=== PATIENT | male | born 1955 | race Caucasian/White ===

== ENCOUNTER → 2017-01-10 | Outpatient (CLI) | payer OTHER ==
[~2017-01-10] MED LIST: DPTSTI200 IM; HYD10 PO; HYDR20TA PO; HYDROCORTISONE PO; LISI-791 PO; MCRK20 PO; SYN100 PO; TUMS PO
[2017-01-10 12:13] LABS: BASO % 0.3 %; BASO ABS # 0.02 K/uL (0-0.2); COMPLETE YES; EOS % 1.6 %; HEMATOCRIT 48.7 % (42-52); IG% 0.3 %; LYMPH % 40.9 %; LYMPH ABS # 3.14 K/uL (1.2-3.4); MEAN CORPUSCULAR HEMOGLOBIN 29.3 pg (25-34); MEAN CORPUSCULAR HGB CONC 32.2 g/dl (32-36); MEAN PLATELET VOLUME 10.3 fL (7.4-10.4); MONO % 9.6 %; NEUT % 47.3 %; PLATELET COUNT 161 K/uL (130-400); RED BLOOD COUNT 5.35 M/uL (4.7-6.1); WHITE BLOOD COUNT 7.67 K/uL (4.8-10.8)
[2017-01-10 12:24] LABS: ALT/SGPT 32 U/L (12-78); BLOOD UREA NITROGEN 20 mg/dl (7-18); BUN/CREATININE RATIO 12.6 (10-20); CALCIUM 9.4 mg/dl (8.5-10.1); CARBON DIOXIDE 30 mmol/L (21-32); CHLORIDE 105 mmol/L (98-107); CHOLESTEROL 178 mg/dl (0-200); GLUCOSE 83 mg/dl (70-99); POTASSIUM 4.2 mmol/L (3.5-5.1); SODIUM 140 mmol/L (136-145); TRIGLYCERIDES 286 mg/dl (0-150); VERY LOW DENSITY LIPOPROT CALC 57 mg/dl
[2017-01-10 12:33] LABS: ALB/GLOB RATIO 1.2 (0.9-2); ALKALINE PHOSPHATASE 47 U/L (45-117); AST/SGOT 17 U/L (15-37); CHOLESTEROL/HDL RATIO 6.4; HDL CHOLESTEROL 28 mg/dl; LDL CHOLESTEROL CALCULATED 93 mg/dl; THYROID STIMULATING HORMONE 0.344 uIu/ml (0.300-4.500)
== END | disposition home or self-care (01) ==
LOC: C.LABBFT 07:50
PROVIDERS: ATTEND Internal Medicine
DX: Z00.00 Encounter for general adult medical examination without abnormal findings (principal); I10 Essential (primary) hypertension; E78.5 Hyperlipidemia, unspecified; E03.9 Hypothyroidism, unspecified; E87.6 Hypokalemia; Z12.5 Encounter for screening for malignant neoplasm of prostate

== ENCOUNTER → 2018-01-10 | Outpatient (CLI) | payer BC ==
[2018-01-10 12:26] LABS: BASO % 0.2 %; BASO ABS # 0.02 K/uL (0-0.2); EOS % 1.3 %; EOS ABS # 0.11 K/uL (0-0.5); HEMATOCRIT 47.8 % (42-52); HEMOGLOBIN 16.1 g/dL (14.0-18.0); IG# 0.03 K/uL (0.00-0.02); LYMPH ABS # 3.51 K/uL (1.2-3.4); MEAN CELL VOLUME 90.4 fL (80-100); MEAN CORPUSCULAR HEMOGLOBIN 30.4 pg (25-34); MEAN CORPUSCULAR HGB CONC 33.7 g/dl (32-36); MEAN PLATELET VOLUME 10.5 fL (7.4-10.4); MONO ABS # 0.67 K/uL (0.11-0.59); NEUT % 48.1 %; NEUT ABS # 4.01 K/uL (1.4-6.5); PLATELET COUNT 160 K/uL (130-400); RED CELL DISTRIBUTION WIDTH CV 14.3 % (11.5-14.5); RED CELL DISTRIBUTION WIDTH SD 46.6 fL (36.4-46.3); WHITE BLOOD COUNT 8.35 K/uL (4.8-10.8)
[2018-01-10 12:44] LABS: ALBUMIN 3.8 gm/dl (3.4-5.0); ALKALINE PHOSPHATASE 49 U/L (45-117); ALT/SGPT 28 U/L (12-78); AST/SGOT 18 U/L (15-37); BLOOD UREA NITROGEN 23 mg/dl (7-18); CALCIUM 8.6 mg/dl (8.5-10.1); CARBON DIOXIDE 28 mmol/L (21-32); CHOLESTEROL 152 mg/dl (0-200); CREATININE 1.57 mg/dl (0.60-1.40); GLUCOSE 79 mg/dl (70-99); LDL CHOLESTEROL CALCULATED 67 mg/dl; SODIUM 137 mmol/L (136-145); TOTAL PROTEIN 7.5 gm/dl (6.4-8.2)
== END | disposition home or self-care (01) ==
LOC: C.LABBFT 07:36
PROVIDERS: ATTEND Internal Medicine
DX: I10 Essential (primary) hypertension (principal); E78.5 Hyperlipidemia, unspecified; E03.9 Hypothyroidism, unspecified

== ENCOUNTER 2020-01-05 12:00 | Inpatient (IN) ==
[2020-01-05 12:43] LABS: Basophils # (auto) 0.01 K/uL (0-0.2); Basophils % (auto) 0.2 %; Hematocrit (blood only) 44.1 % (42-52); Immature Granulocytes # (auto) 0.01 K/uL (0.00-0.02); Immature Granulocytes % (auto) 0.2 %; Lymphocytes # (auto) 1.74 K/uL (1.2-3.4); Lymphocytes % (auto) 37.9 %; Mean Corpuscular Hemoglobin 30.9 pg (25-34); Mean Corpuscular Volume 90.7 fL (80-100); Mean Platelet Volume 9.9 fL (7.4-10.4); Monocytes # (auto) 0.27 K/uL (0.11-0.59); Monocytes % (auto) 5.9 %; Neutrophils # (auto) 2.56 K/uL (1.4-6.5); Neutrophils % (auto) 55.8 %; Platelet Count 110 K/uL (130-400); RDW Coefficient of Variation 13.8 % (11.5-14.5); RDW Standard Deviation 45.7 fL (36.4-46.3); Red Blood Count 4.86 M/uL (4.7-6.1); White Blood Count 4.59 K/uL (4.8-10.8)
[2020-01-05] MEDS ORDERED: SODIUM CHLORIDE 0.9% 1000ML 1,000 ML IV SCH (12:45)
[2020-01-05 12:53] LABS: Albumin Level 3.7 gm/dl (3.4-5.0); BUN Creatinine Ratio 11.1 (10-20); Calcium 8.3 mg/dl (8.5-10.1); Est GFR (African American) 55.7; Est GFR (Non-African American) 48.1; Potassium 3.7 mmol/L (3.5-5.1)
[2020-01-05 12:56] LABS: Albumin Globulin Ratio 0.9 (0.9-2); Bilirubin,Total 0.7 mg/dl (0.2-1); Globulin 4.1 gm/dl (2.5-4.0); Total Protein 7.8 gm/dl (6.4-8.2)
[2020-01-05] MEDS ORDERED: ACETAMINOPHEN 1,000 MG/100 ML VIAL IV STA (13:12)
[2020-01-05] MEDS ORDERED: ONDANSETRON INJ 2 MG/ML 2 ML VIAL IV STA (13:12)
--- NOTE | 2020-01-05 13:13 | Emergency Department Note ---
History of Present Illness General Chief complaint: Illness Stated complaint: POSITIVE FOR COVID Time Seen by Provider: 01/05/20 12:48 History of Present Illness Maximum Pain Intensity: 9 This is a 64-year-old male that presents to the emergency department via private vehicle with complaints of "positive for COVID". The patient states that this past Tuesday he became ill and lost sense of taste and had a headache. He states that he has a history of pituitary tumor with subsequent resection and now takes daily hydrocortisone. He states that secondary to his illness he has not been able to take hydrocortisone yesterday or today. He states that his symptoms will come in waves. He notes he is persistently feeling worse. He notes decreased p.o. intake as well. He notes associated fever, backache, headache and nausea. No cough or shortness of breath. No chest pain. He denies any significant travel. Home Medications Home Medications Medication Instructions Recorded Confirmed Type calcium carbonate 200 mg calcium 200 mg PO DAILY PRN tab 02/09/19 01/05/20 History (500 mg) chewable tablet hydrocodone-homatropine 5 mg-1.5 5 ml PO HS PRN #240 ml 02/09/19 01/05/20 History mg/5 mL oral syrup hydrocortisone 10 mg tablet See Rx Instructions PO QPM #90 tab 06/18/19 01/05/20 Rx hydrocortisone 20 mg tablet 20 mg PO QAM #90 tab 07/31/19 01/05/20 Rx testosterone 20.25 mg/1.25 gram 4 pump TOP DAILY #150 gm 11/09/19 01/05/20 Rx (1.62 %) transdermal gel pump levothyroxine 100 mcg PO QAM 01/05/20 01/05/20 History losartan 25 mg PO QAM 01/05/20 01/05/20 History potassium chloride 20 meq PO QAM 01/05/20 01/05/20 History Allergies Allergy/AdvReac Type Severity Reaction Status Date / Time CIGARETTE SMOKE Allergy Intermediate RESPITORY Uncoded 01/05/20 15:01 SYMTOMS RABBITS Allergy Unknown HARD TIME Uncoded 01/05/20 15:01 BREATHING,CLOGS HEAD Past Med/Surg History Medical History Adrenal insufficiency (Inactive) Surgical History History of surgical removal of pituitary gland Social History Smoking Status: Never smoker Feels Safe at Home: Yes Review of Systems A total of 10 systems reviewed and were otherwise negative Physical Exam Vital Signs Vital Signs - 24 hr 01/05/20 12:10 01/05/20 13:20 Temperature 37.7 C H 37.0 C Temperature Source Oral Oral Pulse Rate 70 Pulse Rate [Left Finger] 67 Respiratory Rate 20 20 Blood Pressure 145/81 H Blood Pressure [Left Arm] 145/94 H Blood Pressure Mean 102 Blood Pressure Mean [Left Arm] 111 Blood Pressure Position Lying Pulse Oximetry 96 97 Sepsis Recent Fever Within 48 Hours Yes Sepsis New/Unexplained Change in Mental Status No Sepsis Action Taken by Nursing No Action Required VITAL SIGNS - Vital signs and nursing notes were reviewed. Borderline febrile, otherwise stable. GENERAL - 64-year-old male appearing his stated age who is in no acute distress. Communicates well with provider and answers questions appropriately. SKIN - Without rashes. No meningeal or petechial rash. HEAD - NC/AT. EYES - PERRL with EOMI bilaterally. Sclera anicteric. EARS - No deformities of external structures noted on gross examination bilaterally. NOSE - Midline and without cyanosis. No epistaxis or purulent drainage noted. MOUTH/OROPHARYNX - Without perioral cyanosis. NECK - Neck with FROM. Supple to palpation. No lymphadenopathy noted. No nuchal rigidity. LUNGS - Chest wall symmetric without accessory muscle use, intercostals retractions, or central cyanosis. Normal vesicular breath sounds CTA B/L. No wheezes, rales, or rhonchi appreciated. CARDIAC - RRR with S1/S2. No murmur, rubs, or gallops appreciated. ABDOMEN - Abdominal contour normal without pulsations or visible masses. BS normoactive all four quadrants. No tenderness, palpable masses, hepatosplenomegaly, or ascites noted. EXTREMITIES - +5/5 strength noted in UE/LE bilaterally. NEUROLOGIC - Cranial nerves II through XII grossly intact. PSYCH - A&O, and cooperates fully with examiner. Pt is very pleasant and interacts well with examiner. Course Administered Medications Discontinued Medications Hydrocortisone (Cortef) 20 mg PO NOW STA Stop: 01/05/20 14:36 Last Admin: 01/05/20 15:02 Dose: 20 mg Documented by: [id number] Hydrocortisone Sodium Succinate (Solu-Cortef) 20 mg IV NOW STA Stop: 01/05/20 14:43 Last Admin: 01/05/20 14:54 Dose: 20 mg Documented by: [id number] Sodium Chloride (Nss 1000ml) 1,000 mls @ 999 mls/hr IV .Q1H1M PRISCILLA Stop: 01/05/20 13:45 Last Infusion: 01/05/20 14:02 Dose: 0 mls/hr Documented by: [id number] Admin: 01/05/20 12:36 Dose: 999 mls/hr Documented by: [id number] Acetaminophen (Ofirmev) 1,000 mg in 100 mls @ 400 mls/hr IV NOW STA Stop: 01/05/20 13:26 Last Infusion: 01/05/20 14:02 Dose: 0 mls/hr Documented by: [id number] Admin: 01/05/20 13:18 Dose: 400 mls/hr Documented by: [id number] Piperacillin Sod/Tazobactam Sod (Zosyn) 4.5 gm in 120 mls @ 240 mls/hr IV NOW ONE Stop: 01/05/20 15:16 Last Infusion: 01/05/20 16:25 Dose: 0 mls/hr Documented by: [id number] Admin: 01/05/20 15:04 Dose: 240 mls/hr Documented by: [id number] Ioversol (Optiray 320 125ml) 120 ml IV ONCE ONE Stop: 01/05/20 16:24 Last Admin: 01/05/20 16:24 Dose: 120 ml Documented by: [id number] Ondansetron HCl (Zofran) 4 mg IV NOW STA Stop: 01/05/20 13:13 Last Admin: 01/05/20 13:18 Dose: 4 mg Documented by: [id number] Medical Decision Making Laboratory Data Result diagrams: 01/05/20 12:23 01/05/20 12:23 Lab Results 01/05/20 01/05/20 01/05/20 Range/Units 12:23 12:23 12:23 WBC 4.59 L (4.8-10.8) K/uL RBC 4.86 (4.7-6.1) M/uL Hgb 15.0 (14.0-18.0) g/dL Hct 44.1 (42-52) % MCV 90.7 (80-100) fL MCH 30.9 (25-34) pg MCHC 34.0 (32-36) g/dL RDW Std Deviation 45.7 (36.4-46.3) fL RDW Coeff of Joshua 13.8 (11.5-14.5) % Plt Count 110 L (130-400) K/uL MPV 9.9 (7.4-10.4) fL Immature Gran % (Auto) 0.2 % Neut % (Auto) 55.8 % Lymph % (Auto) 37.9 % [place] % (Auto) 5.9 % Eos % (Auto) 0.0 % Baso % (Auto) 0.2 % Neut # (Auto) 2.56 (1.4-6.5) K/uL Lymph # (Auto) 1.74 (1.2-3.4) K/uL [place] # (Auto) 0.27 (0.11-0.59) K/uL Eos # (Auto) 0.00 (0-0.5) K/uL Baso # (Auto) 0.01 (0-0.2) K/uL Immature Gran # (Auto) 0.01 (0.00-0.02) K/uL D-Dimer (0-500) ug/L FEU Sodium 135 L (136-145) mmol/L Potassium 3.7 (3.5-5.1) mmol/L Chloride 102 (98-107) mmol/L Carbon Dioxide 30 (21-32) mmol/L Anion Gap 3.0 (3-11) BUN 17 (7-18) mg/dl Creatinine 1.52 H (0.6-1.4) mg/dl Est Cr Clr Drug Dosing 67.0 ml/min Est GFR ( Amer) 55.7 Est GFR (Non-Af Amer) 48.1 BUN/Creatinine Ratio 11.1 (10-20) Glucose 83 (70-99) mg/dl Lactate (0.4-2.0) mmol/L Calcium 8.3 L (8.5-10.1) mg/dl Total Bilirubin 0.7 (0.2-1) mg/dl AST 56 H (15-37) U/L ALT 73 (12-78) U/L Alkaline Phosphatase 62 (45-117) U/L Troponin I (0-0.045) ng/ml Total Protein 7.8 (6.4-8.2) gm/dl Albumin 3.7 (3.4-5.0) gm/dl Globulin 4.1 H (2.5-4.0) gm/dl Albumin/Globulin Ratio 0.9 (0.9-2) Procalcitonin < 0.05 (0-0.5) ng/ml 01/05/20 01/05/20 01/05/20 Range/Units 12:23 12:23 15:04 WBC (4.8-10.8) K/uL RBC (4.7-6.1) M/uL Hgb (14.0-18.0) g/dL Hct (42-52) % MCV (80-100) fL MCH (25-34) pg MCHC (32-36) g/dL RDW Std Deviation (36.4-46.3) fL RDW Coeff of Joshua (11.5-14.5) % Plt Count (130-400) K/uL MPV (7.4-10.4) fL Immature Gran % (Auto) % Neut % (Auto) % Lymph % (Auto) % [place] % (Auto) % Eos % (Auto) % Baso % (Auto) % Neut # (Auto) (1.4-6.5) K/uL Lymph # (Auto) (1.2-3.4) K/uL [place] # (Auto) (0.11-0.59) K/uL Eos # (Auto) (0-0.5) K/uL Baso # (Auto) (0-0.2) K/uL Immature Gran # (Auto) (0.00-0.02) K/uL D-Dimer 540 H* (0-500) ug/L FEU Sodium (136-145) mmol/L Potassium (3.5-5.1) mmol/L Chloride (98-107) mmol/L Carbon Dioxide (21-32) mmol/L Anion Gap (3-11) BUN (7-18) mg/dl Creatinine (0.6-1.4) mg/dl Est Cr Clr Drug Dosing ml/min Est GFR ( Amer) Est GFR (Non-Af Amer) BUN/Creatinine Ratio (10-20) Glucose (70-99) mg/dl Lactate 0.9 (0.4-2.0) mmol/L Calcium (8.5-10.1) mg/dl Total Bilirubin (0.2-1) mg/dl AST (15-37) U/L ALT (12-78) U/L Alkaline Phosphatase (45-117) U/L Troponin I < 0.015 (0-0.045) ng/ml Total Protein (6.4-8.2) gm/dl Albumin (3.4-5.0) gm/dl Globulin (2.5-4.0) gm/dl Albumin/Globulin Ratio (0.9-2) Procalcitonin (0-0.5) ng/ml Imaging Data Radiologist's Impression: XR chest 1V portable CLINICAL HISTORY: fever, COVID + fever COMPARISON STUDY: 02/27/2015 FINDINGS: Developing parenchymal infiltrate left base. Platelike atelectasis right base. Upper lungs are clear. IMPRESSION: Developing parenchymal infiltrate left base. ACT 112: Negative or not required by law. The above report was generated using voice recognition software. It may contain grammatical, syntax or spelling errors. Electronically signed by: Timo Olsen M.D. 01/05/2020 2:[address] angio chest PE protocol CT DOSE: 528.54 mGycm HISTORY: Pain COVID+, back pain TECHNIQUE: Multiaxial CT images of the chest were performed following the intravenous administration of contrast to evaluate the pulmonary arteries. Maxim al intensity projection images were also obtained. A dose lowering technique was utilized adhering to the principles of ALARA. COMPARISON STUDY: None. FINDINGS: Pulmonary vasculature enhances appropriately. No significant filling defects. Bibasilar parenchymal infiltrative change. Patchy groundglass densities in the upper left and to a lesser extent upper right lobes as well. IMPRESSION: 1. No evidence for pulmonary embolus. 2. Diffuse bibasilar parenchymal infiltrates with less prominent groundglass infiltrative changes of the upper lung regions bilaterally. ACT 112: Negative or not required by law. The above report was generated using voice recognition software. It may contain grammatical, syntax or spelling errors. Electronically signed by: Timo Olsen M.D. 01/05/2020 4:42 PM [facility] Narrative Patient was seen and evaluated as above in room B08. Review was performed of nursing notes and vital signs. I did review pertinent previous visits and patient history. After obtaining a thorough history and physical examination the above work up was performed. He presents to us today with a positive COVID test now with worsening symptoms. The patient is nontoxic on examination but does appear to be quite tired. He is borderline febrile. Chest x-ray was obtained and is as above. IV fluids were initiated as well as replenishing the patient's hydrocortisone via both p.o. and IV modalities. He was given Zofran for nausea. He was also given a gram of IV Tylenol. He was reevaluated with some improvement. Given the chest x-ray findings although this is likely viral given his history it was felt empiric IV antibiotics would be reasonable and Zosyn was ordered. Blood cultures pending. Lactic acid and pro calcitonin reassuringly are normal. Patient did have elevated d-dimer and a CTA was obtained and this further shows the diffuse by basilar parenchymal infiltrates. Given the patient's past medical history and missing several doses of hydrocortisone secondary to symptoms I believe that further evaluation and management the inpatient setting would be warranted. I did discuss case with the hospitalist. Please refer to further documentation regarding his stay. Case was discussed with the attending physician. I attest that I have personally reviewed the patient medication list. GCS: 15 In the evaluation and treatment of this patient, the following differential diagnoses were considered: TN, ASC, Dysrhythmia, Angina, Mediastinitis, GERD, Esophagitis, PE, Pneumonia, Bronchitis, Costochondritis, Rib Fracture, Zoster, COVID-19 complications, among others. Impression & Plan COVID-19, Pulmonary infiltrates, Nausea, Adrenal insufficiency Discharge Plan Visit Data Chief Complaint: Illness Stated Complaint: POSITIVE FOR COVID ED Provider: Dennis Leon ED Midlevel Provider: Hussain Hernandez Discharge Problem: COVID-19, Pulmonary infiltrates, Nausea, Adrenal insufficiency Discharge Instructions Interventions: ED Discharge Assessment Last Done: 01/05/20 18:37
[2020-01-05] MEDS ORDERED: HYDROCORTISONE 10 MG TAB PO STA ×2 (14:30→14:35)
[2020-01-05] MEDS ORDERED: HYDROCORTISONE SOD SUCCINATE 100 MG/2 ML VIAL IV STA (14:42)
--- NOTE | 2020-01-05 14:42 | XRay Report ---
XR chest 1V portable CLINICAL HISTORY: fever, COVID + fever COMPARISON STUDY: 02/27/2015 FINDINGS: Developing parenchymal infiltrate left base. Platelike atelectasis right base. Upper lungs are clear. IMPRESSION: Developing parenchymal infiltrate left base. ACT 112: Negative or not required by law. The above report was generated using voice recognition software. It may contain grammatical, syntax or spelling errors. Electronically signed by: Timo Olsen M.D. 01/05/2020 2:41 PM
[2020-01-05] MEDS ORDERED: PIPERACILL/TAZOBAC CONSULT ACTIVE PRN (14:47)
[2020-01-05] MEDS ORDERED: PIPERACILLIN/TAZOBACTAM 4.5 GM/120 ML BAG IV ONE (14:47)
[2020-01-05 15:25] LABS: D Dimer 540 ug/L FEU (0-500)
[2020-01-05] MEDS ORDERED: OPTIRAY 320 125ml IV ONE (16:23)
--- NOTE | 2020-01-05 16:44 | CT Scan Report ---
CT angio chest PE protocol CT DOSE: 528.54 mGycm HISTORY: Pain COVID+, back pain TECHNIQUE: Multiaxial CT images of the chest were performed following the intravenous administration of contrast to evaluate the pulmonary arteries. Maximal intensity projection images were also obtaine d. A dose lowering technique was utilized adhering to the principles of ALARA. COMPARISON STUDY: None. FINDINGS: Pulmonary vasculature enhances appropriately. No significant filling defects. Bibasilar parenchymal infiltrative change. Patchy groundglass densities in the upper left and to a le sser extent upper right lobes as well. IMPRESSION: 1. No evidence for pulmonary embolus. 2. Diffuse bibasilar parenchymal infiltrates with less prominent groundglass infiltrative changes of the upper lung regions bilaterally. ACT 112: Negative or not required by law. The above report was generated using voice recognition software. It may contain grammatical, syntax or spelling errors. Electronically signed by: Timo Olsen M.D. 01/05/2020 4:42 PM
[2020-01-05] MEDS ORDERED: ENOXAPARIN 0.5 MG/KG SQ SCH (17:31)
--- NOTE | 2020-01-05 17:32 | History & Physical Report ---
Date of Service January 05, 2020 Assessment & Plan (1) Nausea: Secondary to COVID-19 -Admit to medical/surgical floor -Treat with IV fluids for hydration -IV Zofran as needed for nausea -Clear liquids diet for now and advance as tolerated (2) COVID-19: Diagnosed with COVID-19 earlier this week, with protracted nausea and inability to take his usual p.o. hydrocortisone at home for adrenal insufficiency With diffuse bibasilar parenchymal infiltrates and bilateral upper lobe groundglass opacities on CT chest, but fortunately is not currently hypoxic or symptomatic with this -Not a candidate for treatment with dexamethasone or antivirals or convalescent plasma at this time as he does not have moderate-severe disease -Continue supportive care, hydration, antiemetics, and acetaminophen as needed for headaches and fever -Consider adding on antiviral and dexamethasone if becomes hypoxic less than 94% on room air -With leukopenia, mild thrombocytopenia, mild elevation in AST, elevated d-dimer all consistent with COVID infection -Follow CBC, CMP, d-dimer, ferritin, LDH, CRP in the morning (3) 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 medications due to nausea and with acute illness with COVID-19 as above Continue p.o. levothyroxine if tolerating p.o. tomorrow-otherwise, can convert to IV We will give stress dose steroid with IV hydrocortisone 50 mg IV every 8 hours while acutely ill -Once improved and taking p.o., can taper back down to home p.o. hydrocortisone of 20 mg in the morning and 10 mg at noon -Can continue testosterone gel topically if brings in from home-okay if does not receive this for a few days (4) Pulmonary infiltrates: Secondary to COVID-19 As above, not hypoxic currently No indication for antibiotics at this time, procalcitonin is negative (5) HTN (hypertension), benign: Blood pressures are mildly elevated on admission Giving stress dose steroids as above -Continue home losartan (6) CKD (chronic kidney disease) stage 3, GFR 30-59 ml/min: Creatinine baseline around 1.2-1.3, currently with mild renal insufficiency with creatinine of 1.5 likely secondary to poor p.o. intake and dehydration -Giving IV fluid hydration --Avoid nephrotoxins -renally dose meds when appropriate -follow BMP (7) Hyponatremia: Sodium 135 on arrival, likely secondary to dehydration and has not been able to take his p.o. hydrocortisone -Starting IV hydrocortisone and IV fluids as above -Follow BMP in the morning (8) Obesity (BMI 30-39.9): BMI 36.3 Has been working on weight loss as an outpatient-lost 50 pounds last year and gained some of it back here (9) DVT prophylaxis: High risk for VTE with COVID infection in the setting of little ambulation and isolation in the hospital Start Lovenox 60 mg SQ once daily which is the recommended dose for COVID patients of 0.5 mgs per kg every 24 hours Disposition-admit to medical/surgical floor Full code History of Present Illness Chief Complaint: Nausea, COVID-19 Primary Care Provider: Irwin Martell MD This patient is a 64-year-old male with a history of panhypopituitarism status post pituitary apoplexy in 2000, HTN, CKD stage III, and obesity who presents to the ER with significant nausea and inability to take oral medications at home after being diagnosed with COVID-19 earlier this week. He reports 6 days ago he began to have a mild headache, a loss of sense of taste, along with chills, body aches, and significant nausea without vomiting. He denies abdominal pains or diarrhea. He denies shortness of breath or cough. He was tested for COVID on Tuesday and received the positive result on Tuesday of this week. He has been staying at home isolated. He thinks that he picked it up from a friend of his at his [employer]. He was not able to take his p.o. hydrocortisone or any of his medications yesterday or today due to profound nausea. Given his history of panhypopituitarism, he was concerned and called his PCP who advised him to come to the ER. In the ER, he was noted to have a mild renal insufficiency with a creatinine of 1.52, mild hyponatremia with sodium 135, AST mildly elevated at 56, and with mild leukopenia and thrombocytopenia. His d-dimer was slightly elevated at 540, troponin was negative. Because he was also complaining of some constant upper back pain, a CT angiogram of the chest was performed to rule out PE which was negative for PE, however showed diffuse bibasilar parenchymal infiltrates and less prominent patchy groundglass densities in the bilateral upper lobes. Fortunately, his pulse ox was normal at 95-97% on room air and he had no chest pain. His blood pressure was actually mildly elevated and he had a low-grade temperature of 37.7 C. He was given a dose of IV hydrocortisone in the ER as well as IV acetaminophen and IV Zosyn for nausea. He was also given IV Zosyn x1 dose for suspected bacterial pneumonia seen on chest x-ray, however his procalcitonin was negative. He will be admitted for intractable nausea and inability to take vital steroid replacement therapy in the setting of acute illness with COVID-19. Allergies Allergy/AdvReac Type Severity Reaction Status Date / Time cigarette smoke Allergy Unknown Respiratory Verified 01/05/20 20:08 symptoms Rabbit Allergy Unknown Hard time Verified 01/05/20 20:10 breathing, clogs head Home Medications Home Medications Medication Instructions Recorded Confirmed Type calcium carbonate 200 mg calcium 200 mg PO DAILY PRN tab 02/09/19 01/05/20 History (500 mg) chewable tablet hydrocodone-homatropine 5 mg-1.5 5 ml PO HS PRN #240 ml 02/09/19 01/05/20 History mg/5 mL oral syrup hydrocortisone 10 mg tablet See Rx Instructions PO QPM #90 tab 06/18/19 01/05/20 Rx hydrocortisone 20 mg tablet 20 mg PO QAM #90 tab 07/31/19 01/05/20 Rx testosterone 20.25 mg/1.25 gram 4 pump TOP DAILY #150 gm 11/09/19 01/05/20 Rx (1.62 %) transdermal gel pump levothyroxine 100 mcg PO QAM 01/05/20 01/05/20 History losartan 25 mg PO QAM 01/05/20 01/05/20 History potassium chloride 20 meq PO QAM 01/05/20 01/05/20 History Past Med/Surg History Medical History Adrenal insufficiency (Inactive) CKD (chronic kidney disease) stage 3, GFR 30-59 ml/min HTN (hypertension), benign Obesity (BMI 30-39.9) Panhypopituitarism Vasovagal episode (Resolved) Surgical History History of surgical removal of pituitary gland Family History (Updated 01/05/20 @ 21:43 by Elizabeth Mistry MD) Father Heart disease Mother No problems noted. Social History Smoking Status: Never smoker Hx Alcohol Use: No Hx Substance Use: No Current Living Situation: Spouse current occupational status: employed current occupation: Self-employed, sells things on [employer] Feels Safe at Home: Yes Review of Systems Review of Systems: All systems reviewed & are unremarkable except as noted in HPI & below Physical Exam Constitutional: WD/WN, vitals as above Eyes: PERRL, conjunctivae normal, anicteric sclerae ENMT: external ear and nose normal, oropharynx normal Neck: trachea midline, no thyromegaly Respiratory: normal respiratory effort; no labored breathing Auscultation: + crackles (Bibasilar); no rhonchi and no wheezes Cardiovascular: RRR, no murmur, no edema Chest (Breasts): Chest: normal inspection of chest Gastrointestinal (Abdomen): normal bowel sounds, soft, nontender, no hepatosplenomegaly Musculoskeletal: Extremities: extremities normal to inspection; no cyanosis and no clubbing Skin: no rashes, warm and dry Neurologic: moves all extremities and awake; no focal motor deficits Psychiatric: A+Ox3, euthymic affect Lymphatic: no lymphedema Results & Data Results & Data ([facility]) Vital Signs (Past 12 Hours) Vital Signs Temp Pulse Pulse Resp BP BP Pulse Ox 01/05/20 13:20 37.0 C 67 20 145/94 H 97 01/05/20 12:10 37.7 C H 70 20 145/81 H 96 Laboratory Results 01/05/20 01/05/20 01/05/20 Range/Units 15:04 12:23 12:23 WBC (4.8-10.8) K/uL RBC (4.7-6.1) M/uL Hgb (14.0-18.0) g/dL Hct (42-52) % MCV (80-100) fL MCH (25-34) pg MCHC (32-36) g/dL RDW Std Deviation (36.4-46.3) fL RDW Coeff of Joshua (11.5-14.5) % Plt Count (130-400) K/uL MPV (7.4-10.4) fL Immature Gran % (Auto) % Neut % (Auto) % Lymph % (Auto) % [place] % (Auto) % Eos % (Auto) % Baso % (Auto) % Neut # (Auto) (1.4-6.5) K/uL Lymph # (Auto) (1.2-3.4) K/uL [place] # (Auto) (0.11-0.59) K/uL Eos # (Auto) (0-0.5) K/uL Baso # (Auto) (0-0.2) K/uL Immature Gran # (Auto) (0.00-0.02) K/uL D-Dimer 540 H* (0-500) ug/L FEU Sodium (136-145) mmol/L Potassium (3.5-5.1) mmol/L Chloride (98-107) mmol/L Carbon Dioxide (21-32) mmol/L Anion Gap (3-11) BUN (7-18) mg/dl Creatinine (0.6-1.4) mg/dl Est Cr Clr Drug Dosing ml/min Est GFR ( Amer) Est GFR (Non-Af Amer) BUN/Creatinine Ratio (10-20) Glucose (70-99) mg/dl Lactate 0.9 (0.4-2.0) mmol/L Calcium (8.5-10.1) mg/dl Total Bilirubin (0.2-1) mg/dl AST (15-37) U/L ALT (12-78) U/L Alkaline Phosphatase (45-117) U/L Troponin I < 0.015 (0-0.045) ng/ml Total Protein (6.4-8.2) gm/dl Albumin (3.4-5.0) gm/dl Globulin (2.5-4.0) gm/dl Albumin/Globulin Ratio (0.9-2) Procalcitonin (0-0.5) ng/ml 01/05/20 01/05/20 01/05/20 Range/Units 12:23 12:23 12:23 WBC 4.59 L (4.8-10.8) K/uL RBC 4.86 (4.7-6.1) M/uL Hgb 15.0 (14.0-18.0) g/dL Hct 44.1 (42-52) % MCV 90.7 (80-100) fL MCH 30.9 (25-34) pg MCHC 34.0 (32-36) g/dL RDW Std Deviation 45.7 (36.4-46.3) fL RDW Coeff of Joshua 13.8 (11.5-14.5) % Plt Count 110 L (130-400) K/uL MPV 9.9 (7.4-10.4) fL Immature Gran % (Auto) 0.2 % Neut % (Auto) 55.8 % Lymph % (Auto) 37.9 % Sanders % (Auto) 5.9 % Eos % (Auto) 0.0 % Baso % (Auto) 0.2 % Neut # (Auto) 2.56 (1.4-6.5) K/uL Lymph # (Auto) 1.74 (1.2-3.4) K/uL Sanders # (Auto) 0.27 (0.11-0.59) K/uL Eos # (Auto) 0.00 (0-0.5) K/uL Baso # (Auto) 0.01 (0-0.2) K/uL Immature Gran # (Auto) 0.01 (0.00-0.02) K/uL D-Dimer (0-500) ug/L FEU Sodium 135 L (136-145) mmol/L Potassium 3.7 (3.5-5.1) mmol/L Chloride 102 (98-107) mmol/L Carbon Dioxide 30 (21-32) mmol/L Anion Gap 3.0 (3-11) BUN 17 (7-18) mg/dl Creatinine 1.52 H (0.6-1.4) mg/dl Est Cr Clr Drug Dosing 67.0 ml/min Est GFR ( Amer) 55.7 Est GFR (Non-Af Amer) 48.1 BUN/Creatinine Ratio 11.1 (10-20) Glucose 83 (70-99) mg/dl Lactate (0.4-2.0) mmol/L Calcium 8.3 L (8.5-10.1) mg/dl Total Bilirubin 0.7 (0.2-1) mg/dl AST 56 H (15-37) U/L ALT 73 (12-78) U/L Alkaline Phosphatase 62 (45-117) U/L Troponin I (0-0.045) ng/ml Total Protein 7.8 (6.4-8.2) gm/dl Albumin 3.7 (3.4-5.0) gm/dl Globulin 4.1 H (2.5-4.0) gm/dl Albumin/Globulin Ratio 0.9 (0.9-2) Procalcitonin < 0.05 (0-0.5) ng/ml Diagnostic Findings CT angio chest PE protocol CT DOSE: 528.54 mGycm HISTORY: Pain COVID+, back pain TECHNIQUE: Multiaxial CT images of the chest were performed following the intravenous administration of contrast to evaluate the pulmonary arteries. Maximal intensity projection images were also obtained. A dose lowering technique was utilized adhering to the principles of ALARA. COMPARISON STUDY: None. FINDINGS: Pulmonary vasculature enhances appropriately. No significant filling defects. Bibasilar parenchymal infiltrative change. Patchy groundglass densities in the upper left and to a lesser extent upper right lobes as well. IMPRESSION: 1. No evidence for pulmonary embolus. 2. Diffuse bibasilar parenchymal infiltrates with less prominent groundglass infiltrative changes of the upper lung regions bilaterally. XR chest 1V portable CLINICAL HISTORY: fever, COVID + fever COMPARISON STUDY: 02/27/2015 FINDINGS: Developing parenchymal infiltrate left base. Platelike atelectasis right base. Upper lungs are clear. IMPRESSION: Developing parenchymal infiltrate left base. Code Status & VTE Plan Code Status Full code VTE Prophylaxis Plan VTE Prophylaxis will be ordered: Yes PG Care Time/CCT Total # of Minutes Spent Total Time Spent with Patient: Total time spent is greater than 50% in coordination of care (as documented) at patient's floor/unit and/or counseling patient: Coding Level of Care Code 24423 Initial Inpt Care Lvl 3 Diagnoses Nausea R11.0 COVID-19 U07.1 Panhypopituitarism E23.0 Pulmonary infiltrates R91.8 HTN (hypertension), benign I10 CKD (chronic kidney disease) stage 3, GFR 30-59 ml/min N18.3 Hyponatremia E87.1 Obesity (BMI 30-39.9) E66.9 DVT prophylaxis Z29.9
[2020-01-05] MEDS ORDERED: NSS + 20MEQ KCL 20 MEQ/1,000 ML BAG IV SCH (17:45)
[2020-01-05] MEDS ORDERED: HYDROCODONE/HOMATROPINE SYRUP 5MG/1.5MG 5ML UDP PO PRN (19:57)
[2020-01-05] MEDS ORDERED: ACETAMINOPHEN 325 MG TAB PO PRN (19:57)
[2020-01-05] MEDS ORDERED: CALCIUM CARBONATE 500 MG CHEWABLE TAB PO PRN (19:57)
[2020-01-05] MEDS ORDERED: ONDANSETRON INJ 2 MG/ML 2 ML VIAL IV PRN (19:57)
[2020-01-05] MEDS ORDERED: HYDROCORTISONE 50 MG *12cc Syringe IV SCH (21:00)
[2020-01-05] MEDS ORDERED: HYDROCORTISONE SOD SUCCINATE 100 MG/2 ML VIAL IV SCH (21:00)
[2020-01-05] MEDS: NSS + 20MEQ KCL 20 MEQ/1,000 ML BAG IV SCH (21:44)
[2020-01-05] MEDS: ENOXAPARIN INJ 60 MG/0.6 ML SYR SQ SCH (21:47)
[2020-01-05] MEDS: HYDROCORTISONE SOD 50 MG in SYRINGE 0 ML IV SCH (21:50)
[2020-01-06] MEDS: HYDROCORTISONE SOD 50 MG in SYRINGE 0 ML IV SCH ×3 (06:14→21:21)
[2020-01-06] MEDS: NSS + 20MEQ KCL 20 MEQ/1,000 ML BAG IV SCH (06:14)
[2020-01-06] MEDS: LOSARTAN POTASSIUM 25 MG TAB PO SCH (08:13)
[2020-01-06] MEDS: LEVOTHYROXINE SODIUM 100 MCG TABLET PO SCH (08:13)
[2020-01-06] MEDS: POTASSIUM CHLORIDE 20 MEQ TABCR PO SCH (08:13)
[2020-01-06 08:15] LABS: Basophils # (auto) 0.01 K/uL (0-0.2); Basophils % (auto) 0.3 %; Hematocrit (blood only) 43.5 % (42-52); Hemoglobin 14.3 g/dL (14.0-18.0); Immature Granulocytes # (auto) 0.01 K/uL (0.00-0.02); Immature Granulocytes % (auto) 0.3 %; Lymphocytes # (auto) 0.83 K/uL (1.2-3.4); Lymphocytes % (auto) 21.1 %; Mean Corpuscular Hemoglobin 29.7 pg (25-34); Mean Corpuscular Hgb Conc 32.9 g/dL (32-36); Mean Corpuscular Volume 90.4 fL (80-100); Mean Platelet Volume 9.7 fL (7.4-10.4); Monocytes # (auto) 0.26 K/uL (0.11-0.59); Monocytes % (auto) 6.6 %; Neutrophils # (auto) 2.82 K/uL (1.4-6.5); Neutrophils % (auto) 71.7 %; Platelet Count 110 K/uL (130-400); RDW Coefficient of Variation 13.5 % (11.5-14.5); Red Blood Count 4.81 M/uL (4.7-6.1); White Blood Count 3.93 K/uL (4.8-10.8)
[2020-01-06 08:25] LABS: D Dimer 460 ug/L FEU (0-500)
[2020-01-06 09:18] LABS: Albumin Globulin Ratio 0.8 (0.9-2); Albumin Level 3.2 gm/dl (3.4-5.0); BUN Creatinine Ratio 11.3 (10-20); Bilirubin,Total 0.6 mg/dl (0.2-1); C Reactive Protein 6.51 mg/dl (0-0.29); Creatinine Clr Calc Pharmacy 80.8 ml/min; Est GFR (African American) 69.9; Est GFR (Non-African American) 60.3; Ferritin 684.2 ng/ml (8-388); Globulin 3.9 gm/dl (2.5-4.0); Magnesium 2.3 mg/dl (1.8-2.4); Potassium 4.3 mmol/L (3.5-5.1); Total Protein 7.1 gm/dl (6.4-8.2)
--- NOTE | 2020-01-06 11:01 | Hospitalist Progress Note ---
Date of Service January 06, 2020 Assessment & Plan (1) Nausea: Secondary to COVID-19 -Improving-tolerating clear liquids diet and was able to take his pills by mouth this morning -Received several liters of IV fluids for hydration-we will stop this now as laboratories appear improved -Continue IV Zofran as needed for nausea -Advance diet to regular today Encouraged p.o. intake (2) COVID-19: Diagnosed with COVID-19 earlier this week, with protracted nausea and inability to take his usual p.o. hydrocortisone at home for adrenal insufficiency With diffuse bibasilar parenchymal infiltrates and bilateral upper lobe groundglass opacities on CT chest, but fortunately is not currently hypoxic although he did develop a dry cough on 01/05 -Not a candidate for treatment with dexamethasone or antivirals or convalescent plasma at this time as he does not have moderate-severe disease i.e. 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 medications due to nausea and with acute illness with COVID-19 as above-this is now improved Continue p.o. levothyroxine -Continue with stress dose steroid with IV hydrocortisone 50 mg IV every 8 hours while acutely ill -Once improved and taking p.o. reliably, can convert to p.o. hydrocortisone with stress dosing and then taper back down to home p.o. hydrocortisone of 20 mg in the morning and 10 mg at noon -Can continue testosterone gel topically if brings in from home-okay if does not receive this for a few days (4) Pulmonary infiltrates: Secondary to COVID-19, with diffuse bibasilar parenchymal infiltrates and bilateral upper lobe groundglass opacities on CT scan of the chest As above, not hypoxic currently but did have a brief reading of 92% on room air on the morning of 01/05 which is now improved No indication for antibiotics at this time, procalcitonin is negative -Follow chest x-ray in the morning (5) HTN (hypertension), benign: Blood pressures are mildly elevated on admission and are now normal -Continue home losartan (6) CKD (chronic kidney disease) stage 3, GFR 30-59 ml/min: Creatinine baseline around 1.2-1.3, with mild renal insufficiency with creatinine of 1.5 upon admission likely secondary to poor p.o. intake and dehydration -Creatinine now improved to baseline after receiving IV fluid hydration --Avoid nephrotoxins -renally dose meds when appropriate -follow BMP (7) Hyponatremia: Sodium 135 on arrival, likely secondary to dehydration and has not been able to take his p.o. hydrocortisone -Starting IV hydrocortisone and IV fluids as above-sodium is now normal -Follow BMP in the morning (8) Obesity (BMI 30-39.9): BMI 36.3 Has been working on weight loss as an outpatient-lost 50 pounds last year and gained some of it back here (9) DVT prophylaxis: High risk for VTE with COVID infection in the setting of little ambulation and isolation in the hospital Continue Lovenox 60 mg SQ once daily which is the recommended dose for COVID patients of 0.5 mgs per kg every 24 hours Disposition-continued stay on medical/surgical floor, but if tolerating regular diet and not hypoxic, could be discharged home on Tuesday Full code Admission and Anticipated Discharge Date Admission Date: January 05, 2020 Subjective Patient reports he feels about the same as yesterday, still low appetite but perhaps nausea is improved. He was able to eat some Jell-O and broth this morning for breakfast. He is having a dry nonproductive cough but denies shortness of breath. His pulse ox when I saw him was 95% on room air. He denies any headache, has been afebrile, no vomiting, no diarrhea or abdominal pain. He is making urine. He is getting bored and wonders if he should just go home, however I advised him I think he should stay at least 1 more day given that we have not yet advanced his diet, the need for continued stress dose steroids through the IV, and the fact that his pulse ox was briefly 92% on room air earlier today. I am concerned that given his diffuse parenchymal pulmonary infiltrates, that he could worsen and then would require more aggressive treatment. He is in agreement with this plan. We will advance his diet today and see how he tolerates this. Review of Systems Review of Systems: All systems reviewed & are unremarkable except as noted in HPI & below Physical Exam Constitutional: WD/WN, vitals as above Eyes: + anicteric sclerae Neck: trachea midline, no thyromegaly Respiratory: normal respiratory effort; no labored breathing Auscultation: + crackles (Bibasilar); no rhonchi and no wheezes Cardiovascular: RRR, no murmur, no edema Chest (Breasts): Chest: normal inspection of chest Gastrointestinal (Abdomen): normal bowel sounds, soft, nontender, no hepatosplenomegaly Musculoskeletal: Extremities: extremities normal to inspection; no cyanosis and no clubbing Skin: no rashes, warm and dry Neurologic: moves all extremities and awake; no focal motor deficits Psychiatric: A+Ox3, euthymic affect Lymphatic: no lymphedema Results & Data Results & Data ([facility]) Vital Signs (Past 12 Hours) Vital Signs Temp Pulse Resp BP Pulse Ox 01/06/20 08:25 37.1 C 68 16 143/93 H 92 Laboratory Results 01/06/20 01/06/20 01/06/20 Range/Units 12:15 09:15 07:51 WBC (4.8-10.8) K/uL RBC (4.7-6.1) M/uL Hgb (14.0-18.0) g/dL Hct (42-52) % MCV (80-100) fL MCH (25-34) pg MCHC (32-36) g/dL RDW Std Deviation (36.4-46.3) fL RDW Coeff of Joshua (11.5-14.5) % Plt Count (130-400) K/uL MPV (7.4-10.4) fL Immature Gran % (Auto) % Neut % (Auto) % Lymph % (Auto) % [place] % (Auto) % Eos % (Auto) % Baso % (Auto) % Neut # (Auto) (1.4-6.5) K/uL Lymph # (Auto) (1.2-3.4) K/uL [place] # (Auto) (0.11-0.59) K/uL Eos # (Auto) (0-0.5) K/uL Baso # (Auto) (0-0.2) K/uL Immature Gran # (Auto) (0.00-0.02) K/uL D-Dimer (0-500) ug/L FEU Sodium (136-145) mmol/L Potassium (3.5-5.1) mmol/L Chloride (98-107) mmol/L Carbon Dioxide (21-32) mmol/L Anion Gap (3-11) BUN (7-18) mg/dl Creatinine (0.6-1.4) mg/dl Est Cr Clr Drug Dosing ml/min Est GFR ( Amer) Est GFR (Non-Af Amer) BUN/Creatinine Ratio (10-20) Glucose (70-99) mg/dl Calcium (8.5-10.1) mg/dl Magnesium (1.8-2.4) mg/dl Ferritin (8-388) ng/ml Total Bilirubin (0.2-1) mg/dl AST (15-37) U/L ALT (12-78) U/L Alkaline Phosphatase (45-117) U/L Lactate Dehydrogenase 275 H (87-241) U/L C-Reactive Protein (0-0.29) mg/dl Total Protein (6.4-8.2) gm/dl Albumin (3.4-5.0) gm/dl Globulin (2.5-4.0) gm/dl Albumin/Globulin Ratio (0.9-2) Urine Color Yellow Urine Appearance Clear (Clear) Urine pH 7.0 (4.5-7.5) Ur Specific [place] 1.017 (1.000-1.030) Urine Protein Negative (Negative) Urine Glucose (UA) Negative (Negative) Urine Ketones Negative (Negative) Urine Blood Negative (Negative) Urine Nitrite Negative (Negative) Urine Bilirubin Negative (Negative) Urine Urobilinogen Negative (Negative) Ur Leukocyte Esterase Negative (Negative) Nasal Screen MRSA (PCR) Negative (Negative) 01/06/20 01/06/20 01/06/20 Range/Units 07:51 07:51 07:51 WBC 3.93 L (4.8-10.8) K/uL RBC 4.81 (4.7-6.1) M/uL Hgb 14.3 (14.0-18.0) g/dL Hct 43.5 (42-52) % MCV 90.4 (80-100) fL MCH 29.7 (25-34) pg MCHC 32.9 (32-36) g/dL RDW Std Deviation 45.0 (36.4-46.3) fL RDW Coeff of Joshua 13.5 (11.5-14.5) % Plt Count 110 L (130-400) K/uL MPV 9.7 (7.4-10.4) fL Immature Gran % (Auto) 0.3 % Neut % (Auto) 71.7 % Lymph % (Auto) 21.1 % [place] % (Auto) 6.6 % Eos % (Auto) 0.0 % Baso % (Auto) 0.3 % Neut # (Auto) 2.82 (1.4-6.5) K/uL Lymph # (Auto) 0.83 L (1.2-3.4) K/uL [place] # (Auto) 0.26 (0.11-0.59) K/uL Eos # (Auto) 0.00 (0-0.5) K/uL Baso # (Auto) 0.01 (0-0.2) K/uL Immature Gran # (Auto) 0.01 (0.00-0.02) K/uL D-Dimer 460 (0-500) ug/L FEU Sodium 137 (136-145) mmol/L Potassium 4.3 D (3.5-5.1) mmol/L Chloride 105 (98-107) mmol/L Carbon Dioxide 25 (21-32) mmol/L Anion Gap 7.0 (3-11) BUN 14 (7-18) mg/dl Creatinine 1.26 (0.6-1.4) mg/dl Est Cr Clr Drug Dosing 80.8 ml/min Est GFR ( Amer) 69.9 Est GFR (Non-Af Amer) 60.3 BUN/Creatinine Ratio 11.3 (10-20) Glucose 95 (70-99) mg/dl Calcium 8.0 L (8.5-10.1) mg/dl Magnesium 2.3 (1.8-2.4) mg/dl Ferritin 684.2 H (8-388) ng/ml Total Bilirubin 0.6 (0.2-1) mg/dl AST 51 H (15-37) U/L ALT 72 (12-78) U/L Alkaline Phosphatase 60 (45-117) U/L Lactate Dehydrogenase (87-241) U/L C-Reactive Protein 6.51 H (0-0.29) mg/dl Total Protein 7.1 (6.4-8.2) gm/dl Albumin 3.2 L (3.4-5.0) gm/dl Globulin 3.9 (2.5-4.0) gm/dl Albumin/Globulin Ratio 0.8 L (0.9-2) Urine Color Urine Appearance (Clear) Urine pH (4.5-7.5) Ur Specific [place] (1.000-1.030) Urine Protein (Negative) Urine Glucose (UA) (Negative) Urine Ketones (Negative) Urine Blood (Negative) Urine Nitrite (Negative) Urine Bilirubin (Negative) Urine Urobilinogen (Negative) Ur Leukocyte Esterase (Negative) Nasal Screen MRSA (PCR) (Negative) PG Care Time/CCT Total # of Minutes Spent Total Time Spent with Patient: Total time spent is greater than 50% in coordination of care (as documented) at patient's floor/unit and/or counseling patient: Coding Level of Care Code 25939 Subseq Hosp Care Lvl 3 Diagnoses Nausea R11.0 COVID-19 U07.1 Panhypopituitarism E23.0 Pulmonary infiltrates R91.8 HTN (hypertension), benign I10 CKD (chronic kidney disease) stage 3, GFR 30-59 ml/min N18.3 Hyponatremia E87.1 Obesity (BMI 30-39.9) E66.9 DVT prophylaxis Z29.9
[2020-01-06 12:37] LABS: Appearance Urine Clear (Clear); Bilirubin Urine Negative (Negative); Blood Urine Negative (Negative); Color Urine Yellow; Glucose Urine UA Negative (Negative); Ketones Urine Negative (Negative); Leukocyte Esterase Urine Negative (Negative); Nitrite Urine Negative (Negative); Protein Urine Negative (Negative); Specific Gravity Urine 1.017 (1.000-1.030); Urobilinogen Urine Negative (Negative)
[2020-01-06] MEDS: ENOXAPARIN INJ 60 MG/0.6 ML SYR SQ SCH (21:21)
[2020-01-07] MEDS: HYDROCORTISONE SOD 50 MG in SYRINGE 0 ML IV SCH (06:25)
[2020-01-07 08:05] VITALS: O2SAT 95
[2020-01-07] MEDS: LOSARTAN POTASSIUM 25 MG TAB PO SCH (08:05)
[2020-01-07] MEDS: POTASSIUM CHLORIDE 20 MEQ TABCR PO SCH (08:05)
[2020-01-07] MEDS: LEVOTHYROXINE SODIUM 100 MCG TABLET PO SCH (08:05)
[2020-01-07 11:20] VITALS: BP 128/74; PULSE 52; TEMP 99
--- NOTE | 2020-01-07 16:03 | Discharge Summary ---
Date of Service January 07, 2020 Admission HPI Per Admitting Provider This patient is a 64-year-old male with a history of panhypopituitarism status post pituitary apoplexy in 2000, HTN, CKD stage III, and obesity who presents to the ER with significant nausea and inability to take oral medications at home after being diagnosed with COVID-19 earlier this week. He reports 6 days ago he began to have a mild headache, a loss of sense of taste, along with chills, body aches, and significant nausea without vomiting. He denies abdominal pains or diarrhea. He denies shortness of breath or cough. He was tested for COVID on Tuesday and received the positive result on Tuesday of this week. He has been staying at home isolated. He thinks that he picked it up from a friend of his at his islam. He was not able to take his p.o. hydrocortisone or any of his medications yesterday or today due to profound nausea. Given his history of panhypopituitarism, he was concerned and called his PCP who advised him to come to the ER. In the ER, he was noted to have a mild renal insufficiency with a creatinine of 1.52, mild hyponatremia with sodium 135, AST mildly elevated at 56, and with mild leukopenia and thrombocytopenia. His d-dimer was slightly elevated at 540, troponin was negative. Because he was also complaining of some constant upper back pain, a CT angiogram of the chest was performed to rule out PE which was negative for PE, however showed diffuse bibasilar parenchymal infiltrates and less prominent patchy groundglass densities in the bilateral upper lobes. Fortunately, his pulse ox was normal at 95-97% on room air and he had no chest pain. His blood pressure was actually mildly elevated and he had a low-grade temperature of 37.7 C. He was given a dose of IV hydrocortisone in the ER as well as IV acetaminophen and IV Zosyn for nausea. He was also given IV Zosyn x1 dose for suspected bacterial pneumonia seen on chest x-ray, however his procalcitonin was negative. He will be admitted for intractable nausea and inability to take vital steroid replacement therapy in the setting of acute illness with COVID-19. Principal Diagnosis Covid causing nausea Discharge Exam Constitutional WD/WN, vitals as above Eyes EOM intact bilaterally; no conjunctival abnormality ENMT external ear and nose normal, oropharynx normal Neck trachea midline, no thyromegaly normal visual inspection Respiratory normal respiratory effort, lungs clear to auscultation no respiratory distress Cardiovascular RRR, no murmur, no edema Gastrointestinal (Abdomen) Inspection/Auscultation: abdomen normal to inspection; abdomen not distended Musculoskeletal no cyanosis or clubbing, extremities motor strength 5/5 Skin no rashes, warm and dry Neurologic moves all extremities and awake Psychiatric Orientation: alert, oriented to person and cooperative Discharge Data Allergies Allergy/AdvReac Type Severity Reaction Status Date / Time cigarette smoke Allergy Unknown Respiratory Verified 01/05/20 20:08 symptoms Rabbit Allergy Unknown Hard time Verified 01/05/20 20:10 breathing, clogs head Consultations 01/05/20 15:15 ED Decision to Admit Stat Ordered Studies 01/05/20 15:33 CT angio chest PE protocol Stat Hospital Course (1) Nausea: Secondary to COVID-19. - By discharge, he was able to tolerate PO without issues. (2) Panhypopituitarism: Secondary to pituitary apoplexy in 2000. Upon admission, he could not tolerate p.o. medications due to nausea and with acute illness with COVID-19 as above-this is now improved. - Continue home levothyroxine & testosterone gel - Discharged with instructions on using stress-dose steroids for now with hydrocortisone 40 mg PO QAM, 20 mg PO at noon, and 20 mg in the afternoon as needed (which he does usually at 10 mg dose). - Will follow up with PCP, Dr. Martell who he works with for his pituitary issues. (3) COVID-19: Viral pneumonia due to COVID 19. Diagnosed with COVID-19 earlier this week, with protracted nausea and inability to take his usual p.o. hydrocortisone at home for adrenal insufficiency. With diffuse bibasilar parenchymal infiltrates and bilateral upper lobe groundglass opacities on CT chest, but fortunately is not currently hypoxic although he did develop a dry cough on 01/05. - Not a candidate for treatment with dexamethasone or antivirals or convalescent plasma at this time as he does not have moderate-severe disease i.e. pulse ox less than 94% on room air or need for mechanical ventilation (4) Pulmonary infiltrates: Secondary to COVID-19, with diffuse bibasilar parenchymal infiltrates and bilateral upper lobe groundglass opacities on CT scan of the chest As above, not hypoxic currently but did have a brief reading of 92% on room air on the morning of 01/05 which is now improved No indication for antibiotics at this time, procalcitonin is negative (5) HTN (hypertension), benign: Blood pressures are mildly elevated on admission and are now normal -Continue home losartan (6) CKD (chronic kidney disease) stage 3, GFR 30-59 ml/min: Creatinine baseline around 1.2-1.3, with mild renal insufficiency with creatinine of 1.5 upon admission likely secondary to poor p.o. intake and dehydration -Creatinine now improved to baseline after receiving IV fluid hydration --Avoid nephrotoxins -renally dose meds when appropriate -follow BMP (7) Hyponatremia: Sodium 135 on arrival, likely secondary to dehydration and has not been able to take his p.o. hydrocortisone -Starting IV hydrocortisone and IV fluids as above-sodium is now normal -Follow BMP in the morning (8) Obesity (BMI 30-39.9): BMI 36.3 Has been working on weight loss as an outpatient-lost 50 pounds last year and gained some of it back here (9) DVT prophylaxis: High risk for VTE with COVID infection in the setting of little ambulation and isolation in the hospital Continue Lovenox 60 mg SQ once daily which is the recommended dose for COVID patients of 0.5 mgs per kg every 24 hours Total Time Total Time Spent Total Time Spent (In Minutes): 35 Discharge Plan Discharge Items Patient Disposition: Home - Self-Care Reason For Visit: COVID,NAUSEA,ADRENAL INSUFFICIENCY Discharge Diagnosis: Nausea due to Covid-19 Activity: Resume your previous activity Non-emergency contact: Primary Care Provider Call non-emergency contact if: your symptoms worsen Follow-up/Referrals: Irwin Martell III, MD [Primary Care Provider] - (PLEASE CONTACT OFFICE TOMORROW TO SCHEDULE A POST HOSPITAL DISCHARGE FOLLOW-UP APPOINTMENT ) Diet: Regular Addtl Attending Provider Instructions: You were diagnosed with dehydration, nausea, and vomiting, likely due to a combination of coronavirus and your pituitary issues. You are feeling well enough now to get discharged from the hospital. Please take "stress dose" steroids for the next week. This regimen is your usual 40 mg in the morning, 20 mg at noon, and another 20 mg in the early afternoon, depending on how you are feeling. Please use this regimen through Tuesday, then attempt to taper the afternoon dose to 10 mg (for a 40 mg, 20 mg, 10 mg schedule). Keep this up until next Tuesday. Please speak with Dr. Martell about if you need to taper to 30 mg / 15 mg vs. going back to your normal maintenance dose. Please also take a baby aspirin (81 mg) for the next 1-2 weeks as coronavirus can increase your risk of clots and stroke. Please speak with Dr. Martell this week on the phone or by video. Please have a low threshold to come back to the hospital, especially if you are feeling short of breath, dizzy, lightheaded, pass out, have chest pain, or other concerning symptoms. Pending Studies at Discharge: No Stand-Alone Forms: My [facility], Smoking Cessation Medications and DC Order Prescriptions: New aspirin 81 mg tablet,chewable 81 mg PO DAILY 10 Days Qty: 10 RF: 0 Continued hydrocortisone 10 mg tablet See Patient Comments mg PO QPM Qty: 90 RF: 3 hydrocortisone 20 mg tablet 20 mg PO QAM Qty: 90 RF: 3 testosterone 20.25 mg/1.25 gram (1.62 %) gel in metered-dose pump 4 pump TOP DAILY Qty: 150 RF: 5 calcium carbonate [Tums] 200 mg calcium (500 mg) tablet,chewable 200 mg PO DAILY PRN (Reason: Gi Upset) RF: 0 hydrocodone-homatropine 5-1.5 mg/5 mL syrup 5 ml PO HS PRN (Reason: Cough) Qty: 240 RF: 0 levothyroxine 100 mcg tablet 100 mcg PO QAM RF: 0 losartan 25 mg tablet 25 mg PO QAM RF: 0 potassium chloride 20 mEq tablet extended release 20 meq PO QAM RF: 0 Discharge Orders: Discharge Order (Routine); Ordered 01/07/20 Ordered By: Maxx Santillan Admission Data Admit Date/Time: 01/05/20 17:31 Attending Provider: Maxx Santillan Admit Provider: Elizabeth Mistry Primary Care Provider: Irwin Martell III Other Providers: Maxx Santillan Other Interventions: Discharge Summary Assessment (RN) Last Done: 01/07/20 11:07 DC Date/Time DO NOT enter until pt leaves facility: 01/07/20 13:00 Coding Level of Care Code D/C Day Management >30 mins Diagnoses Nausea R11.0 Panhypopituitarism E23.0 COVID-19 U07.1 Pulmonary infiltrates R91.8 HTN (hypertension), benign I10 CKD (chronic kidney disease) stage 3, GFR 30-59 ml/min N18.3 Hyponatremia E87.1 Obesity (BMI 30-39.9) E66.9 DVT prophylaxis Z29.9
== END 2020-01-07 13:00 | disposition home or self-care (01) | DRG 177 ==
LOC: ED 12:00 → SUATTDRO 17:31 → 2W 17:31

== ENCOUNTER 2020-10-02 20:42 | Observation (INO) ==
[2020-10-02] MEDS ORDERED: ACETAMINOPHEN 1,000 MG/100 ML VIAL IV STA (21:09)
[2020-10-02] MEDS ORDERED: diphenhydrAMINE 50 MG/ML VIAL IV STA (21:12)
[2020-10-02] MEDS ORDERED: SODIUM CHLORIDE 0.9% 1000ML 1,000 ML IV ONE (21:12)
[2020-10-02] MEDS ORDERED: DROPERIDOL 5 MG/2 ML VIAL IV STA (21:12)
[2020-10-02] MEDS ORDERED: MAGNESIUM SULFATE / D5W 1 GM/100 ML BAG IV STA (21:12)
[2020-10-02 21:42] LABS: Basophils # (auto) 0.02 K/uL (0-0.2); Basophils % (auto) 0.3 %; Eosinophils # (auto) 0.01 K/uL (0-0.5); Eosinophils % (auto) 0.1 %; Hematocrit (blood only) 43.2 % (42-52); Hemoglobin 15.2 g/dL (14.0-18.0); Immature Granulocytes # (auto) 0.01 K/uL (0.00-0.02); Immature Granulocytes % (auto) 0.1 %; Lymphocytes # (auto) 2.47 K/uL (1.2-3.4); Lymphocytes % (auto) 32.3 %; Mean Corpuscular Hemoglobin 30.2 pg (25-34); Mean Corpuscular Hgb Conc 35.2 g/dL (32-36); Mean Corpuscular Volume 85.9 fL (80-100); Mean Platelet Volume 9.4 fL (7.4-10.4); Monocytes # (auto) 1.14 K/uL (0.11-0.59); Monocytes % (auto) 14.9 %; Neutrophils # (auto) 3.99 K/uL (1.4-6.5); Neutrophils % (auto) 52.3 %; Platelet Count 119 K/uL (130-400); RDW Coefficient of Variation 13.4 % (11.5-14.5); Red Blood Count 5.03 M/uL (4.7-6.1); White Blood Count 7.64 K/uL (4.8-10.8)
[2020-10-02 22:01] LABS: Alanine Aminotransferase 28 U/L (12-78); Albumin Level 3.8 gm/dl (3.4-5.0); Aspartate Aminotransferase 23 U/L (15-37); BUN Creatinine Ratio 9.9 (10-20); Blood Urea Nitrogen 18 mg/dl (7-18); Calcium 8.9 mg/dl (8.5-10.1); Carbon Dioxide 28 mmol/L (21-32); Chloride 99 mmol/L (98-107); Est GFR (African American) 43.9; Est GFR (Non-African American) 37.9; Glucose 91 mg/dl (70-99); INR 1.1 (0.9-1.1); Partial Thromboplastin Ratio 1.3; Potassium 3.8 mmol/L (3.5-5.1); Prothrombin Time 11.4 Seconds (9.0-12.0); Sodium 132 mmol/L (136-145)
[2020-10-02 22:04] LABS: Albumin Globulin Ratio 1.1 (0.9-2); Alkaline Phosphatase 54 U/L (45-117); Bilirubin,Total 1.1 mg/dl (0.2-1); Globulin 3.6 gm/dl (2.5-4.0); Total Protein 7.4 gm/dl (6.4-8.2)
[2020-10-02] MEDS ORDERED: SODIUM CHLORIDE 0.9% 1000ML 500 ML IV ONE (22:09)
[2020-10-02] MEDS ORDERED: KETOROLAC 30 MG/ML VIAL IV ONE (22:42)
[2020-10-02] MEDS ORDERED: methylPREDNISolone 125 MG/2 ML VIAL IV STA (22:42)
--- NOTE | 2020-10-02 22:44 | Emergency Department Note ---
Impression & Plan Fever, Adrenal insufficiency ED Provider Note NAME: PANTERA BOSS AGE: 65 SEX: M : 1955 ARRIVES VIA: Ambulance INFORMANT: Patient, EMS ED PROVIDER(S): Jose A Haile MD CHIEF COMPLAINT: fever s/p covid vaccine HPI: This is a 65-year-old male who presents emergency department complaining of generalized aches and pains all over his body after receiving the Pfizer vaccine yesterday. The patient reports he was diagnosed with Covid last year. He received his first dose yesterday. He reports since that time he has had generalized aches and pains all over his body. He also reports running a fever at home. He reports he has not taken anything for the fever but has laid around all day. He reports a headache however reports it is not the worst headache of his life. ROS: See above HPI for pertinent positives & negatives. A total of 10 systems reviewed and were otherwise negative. PAST MEDICAL HISTORY: See Below PAST SURGICAL HISTORY: See Below FAMILY HISTORY: See Below SOCIAL HISTORY: See Below HOME MEDICATIONS: See Below ALLERGIES: See Below VITALS: See Below PHYSICAL EXAMINATION: VITAL SIGNS - Vital signs and nursing notes were reviewed. GENERAL - 65-year-old male appearing stated age who is in no acute distress. Communicates well with provider and answers questions appropriately. SKIN - Without rashes. HEAD - NC/AT. EYES - PERRL with EOMI bilaterally. Sclera anicteric. Palpebral conjunctiva pink and moist with no injection noted. EARS - No deformities of external structures noted on gross examination bilaterally. NOSE - Midline and without cyanosis. No epistaxis or purulent drainage noted. Septum midline without deviation or septal hematoma noted. MOUTH/OROPHARYNX - Without perioral cyanosis. Buccal mucosa pink and moist and without leukoplakia. Tongue midline with equal elevation of palate bilaterally. No tonsillar hypertrophy, erythema, or exudates noted. NECK - Neck with FROM. Supple to palpation. No nuchal rigidity. LUNGS - Chest wall symmetric without accessory muscle use, intercostals retractions, or central cyanosis. Normal vesicular breath sounds CTA B/L. No wheezes, rales, or rhonchi appreciated. CARDIAC - RRR with S1/S2. No murmur, rubs, or gallops appreciated. ABDOMEN - Abdominal contour without pulsations or visible masses. BS normoactive all four quadrants. No tenderness, palpable masses, hepatosplenomega ly, or ascites noted. EXTREMITIES - No clubbing or peripheral cyanosis. No pretibial edema present. +3/5 radial, posterior tibial, and dorsalis pedis pulses palpated throughout. +5/5 strength noted in UE/LE bilaterally. NEUROLOGIC - Cranial nerves II through XII grossly intact. Sensory intact to l ight touch throughout. Patellar reflexes +2/4. PSYCH - A&Ox3 and cooperates fully with examiner. Pt is very pleasant and interacts well with examiner. MEDICAL DECISION MAKING: Patient was seen and evaluated as above in room B8. Review was performed of nursing notes and vital signs. I did review pertinent previous visits and patient history. After obtaining a thorough history and physical examination the above work up was performed. This 65-year-old male who presents emergency department complaining of high fever. The patient was running a fever of 104 at home. Upon arrival to the emergency department the patient is incredibly weak. I will note that the patient has a history of adrenal insufficiency. Based on this the patient was given Solu-Medrol here in the emergency department. This revealed improvement in the patient's symptoms. He was also given Tylenol as well as Toradol. The patient is still very weak and I suspect is an adrenal crisis. For this reason I did discuss the case with the hospitalist service. An order was placed for continuous cardiac monitoring. The monitor shows a rate of 72 with Normal SInus rhythm. The patient was evaluated during a period of high volume and high acuity during the global COVID-19 pandemic, and that diagnosis was suspected/considered upon their initial presentation. Their evaluation, treatment and testing was consist ent with current guidelines for patients who present with complaints or symptoms that may be related to COVID-19. Patient was seen while provider was wearing PPE. Triage Nursing notes reviewed. Prior medical records reviewed Vital Signs: reviewed and remarkable for no significant abnormalities Differential diagnosis: Viral syndrome, otitis, pharyngitis, pneumonia, influenza, meningitis, urinary tract infection, sepsis, bacteremia, as well as other pathologies. ER treatment provided: See below Diagnostics interpreted by me: ECG: EKG shows normal sinus rhythm no ST elevation or depression QTC is 444 ventricular rate is 97 EKG is compared to 02/27/2015 it is unchanged from previou s Laboratory studies: As stated above and show below. Imaging studies: See below Consultation(s): Internal Medicine Critical Care: I have personally spent greater than 30 minutes of critical care time in the direct management of this patient. This includes bedside care, interpretation of diagnostic studies, and testing, discussion with consultants, patient, and family members, and other required patient management activities. This 30 minutes is in excess of all separately billable procedures. Past Med/Surg History Medical History (Updated 10/03/20 @ 02:58 by Jose A Haile MD) Adrenal insufficiency CKD (chronic kidney disease) stage 3, GFR 30-59 ml/min HTN (hypertension), benign Obesity (BMI 30-39.9) Panhypopituitarism Vasovagal episode Surgical History History of surgical removal of pituitary gland Family History Father Heart disease Mother No problems noted. Denies family history of Ovarian cancer Prostate cancer Myocardial infarction Breast cancer Colorectal cancer Social History Smoking Status: Never smoker Second Hand Exposure: No; Hx Alcohol Use: No Hx Substance Use: No Preferred Language: Honduran Communication Ability: Effective Visual Impairment: Limited Hearing Ability: Normal [employer] Principal Required: No Beliefs That Will Affect Care: None marital status: Current Living Situation: Spouse current occupational status: employed current occupation: Self-employed, sells things on [employer] Feels Safe at Home: Yes Childhood Exposure to Second-Hand Smoke: Yes (father quit after he realized of allergy) caffeine: Yes during the past year weight has: remained stable Dental Care, Regularly: Yes Physical Activity Frequency: 5-6 Times per Week Seatbelt Use: always Sunscreen Use: No Assistive Devices: Glasses Allergies Allergies Allergy/AdvReac Type Severity Reaction Status Date / Time cigarette smoke Allergy Unknown Respiratory Verified 02/25/20 11:24 symptoms Rabbit Allergy Unknown Hard time Verified 02/25/20 11:24 breathing, clogs head Home Meds Home Medications Medication Instructions Recorded Confirmed calcium carbonate 200 mg calcium 200 mg PO DAILY PRN tab 02/09/19 02/25/20 (500 mg) chewable tablet losartan 25 mg PO QAM 01/05/20 02/25/20 Previous Rx's Medication Instructions Recorded hydrocortisone 20 mg tablet 20 mg PO QAM #90 tab 07/31/19 levothyroxine 100 mcg tablet 100 mcg PO QAM #90 tab 02/15/20 hydrocodone-homatropine 5 mg-1.5 5 ml PO HS PRN #450 ml 02/25/20 mg/5 mL oral syrup hydrocortisone 10 mg tablet See Rx Instructions PO QPM #90 tab 02/25/20 testosterone 20.25 mg/1.25 gram 4 pump TOP DAILY #150 gm 06/02/20 (1.62 %) transdermal gel pump potassium chloride 20 mEq 20 meq PO DAILY #90 tab 07/09/20 tablet,extended release Results & Data (ED) Vital Signs Vital Signs - 24 hr 10/02/20 20:55 10/02/20 21:00 10/02/20 22:00 Temperature 39.6 C H Temperature Source Oral Pulse Rate 101 H 90 81 Pulse Rate from SpO2 Sensor 89 Pulse Rhythm Regular Pulse Strength Normal Respiratory Rate 25 H 22 24 Respiratory Effort / Characteristics Non-Labored Respiratory Depth Normal Blood Pressure 149/88 H 136/82 116/48 L Blood Pressure Mean 108 100 70 Blood Pressure Position Lying Pulse Oximetry 95 92 98 Oxygen Delivery Method Room Air Sepsis Recent Fever Within 48 Hours Yes Sepsis New/Unexplained Change in Mental Status Yes Sepsis Action Taken by Nursing Physician Notified 10/02/20 22:15 10/02/20 22:30 10/02/20 22:45 Temperature Temperature Source Pulse Rate 83 82 89 Pulse Rate from SpO2 Sensor Pulse Rhythm Pulse Strength Respiratory Rate 22 24 22 Respiratory Effort / Characteristics Respiratory Depth Blood Pressure 115/56 L 112/52 L 107/59 L Blood Pressure Mean 75 72 75 Blood Pressure Position Pulse Oximetry 100 96 96 Oxygen Delivery Method Sepsis Recent Fever Within 48 Hours Sepsis New/Unexplained Change in Mental Status Sepsis Action Taken by Nursing 10/02/20 23:00 10/02/20 23:15 10/02/20 23:28 Temperature 37.5 C Temperature Source Oral Pulse Rate 89 95 H Pulse Rate from SpO2 Sensor Pulse Rhythm Pulse Strength Respiratory Rate 24 19 Respiratory Effort / Characteristics Respiratory Depth Blood Pressure 105/58 L 118/72 Blood Pressure Mean 73 87 Blood Pressure Position Pulse Oximetry 96 94 Oxygen Delivery Method Sepsis Recent Fever Within 48 Hours Sepsis New/Unexplained Change in Mental Status Sepsis Action Taken by Nursing 10/02/20 23:30 10/02/20 23:45 10/03/20 00:00 Temperature Temperature Source Pulse Rate 85 89 87 Pulse Rate from SpO2 Sensor Pulse Rhythm Pulse Strength Respiratory Rate 24 15 17 Respiratory Effort / Characteristics Respiratory Depth Blood Pressure 109/58 L 107/57 L 111/53 L Blood Pressure Mean 75 73 72 Blood Pressure Position Pulse Oximetry 90 91 90 Oxygen Delivery Method Sepsis Recent Fever Within 48 Hours Sepsis New/Unexplained Change in Mental Status Sepsis Action Taken by Nursing 10/03/20 00:30 10/03/20 00:45 10/03/20 01:00 Temperature Temperature Source Pulse Rate 85 85 84 Pulse Rate from SpO2 Sensor 84 Pulse Rhythm Pulse Strength Respiratory Rate 19 19 24 Respiratory Effort / Characteristics Respiratory Depth Blood Pressure 108/58 L 120/60 106/57 L Blood Pressure Mean 74 80 73 Blood Pressure Position Pulse Oximetry 91 91 92 Oxygen Delivery Method Sepsis Recent Fever Within 48 Hours Sepsis New/Unexplained Change in Mental Status Sepsis Action Taken by Nursing 10/03/20 01:01 10/03/20 01:15 10/03/20 01:30 Temperature Temperature Source Pulse Rate 84 91 H 79 Pulse Rate from SpO2 Sensor 82 92 H 78 Pulse Rhythm Pulse Strength Respiratory Rate 24 21 14 Respiratory Effort / Characteristics Respiratory Depth Blood Pressure 98/85 L 114/63 Blood Pressure Mean 89 80 Blood Pressure Position Pulse Oximetry 92 96 91 Oxygen Delivery Method Sepsis Recent Fever Within 48 Hours Sepsis New/Unexplained Change in Mental Status Sepsis Action Taken by Nursing 10/03/20 01:45 10/03/20 02:00 10/03/20 02:01 Temperature Temperature Source Pulse Rate 78 72 78 Pulse Rate from SpO2 Sensor 77 73 76 Pulse Rhythm Pulse Strength Respiratory Rate 19 16 21 Respiratory Effort / Characteristics Respiratory Depth Blood Pressure 111/58 L 104/55 L Blood Pressure Mean 75 71 Blood Pressure Position Pulse Oximetry 95 95 81 L Oxygen Delivery Method Sepsis Recent Fever Within 48 Hours Sepsis New/Unexplained Change in Mental Status Sepsis Action Taken by Nursing 10/03/20 02:15 Temperature Temperature Source Pulse Rate 72 Pulse Rate from SpO2 Sensor 72 Pulse Rhythm Pulse Strength Respiratory Rate 20 Respiratory Effort / Characteristics Respiratory Depth Blood Pressure 102/58 L Blood Pressure Mean 72 Blood Pressure Position Pulse Oximetry 94 Oxygen Delivery Method Sepsis Recent Fever Within 48 Hours Sepsis New/Unexplained Change in Mental Status Sepsis Action Taken by Nursing Laboratory Data Result diagrams: 10/02/20 21:31 10/02/20 21:31 Lab Results 10/02/20 10/02/2010/02/21 Range/Units 21:31 21:31 21:31 WBC 7.64 (4.8-10.8) K/uL RBC 5.03 (4.7-6.1) M/uL Hgb 15.2 (14.0-18.0) g/dL Hct 43.2 (42-52) % MCV 85.9 (80-100) fL MCH 30.2 (25-34) pg MCHC 35.2 (32-36) g/dL RDW Std Deviation 42.0 (36.4-46.3) fL RDW Coeff of Joshua 13.4 (11.5-14.5) % Plt Count 119 L (130-400) K/uL MPV 9.4 (7.4-10.4) fL Immature Gran % (Auto) 0.1 % Neut % (Auto) 52.3 % Lymph % (Auto) 32.3 % Irion % (Auto) 14.9 % Eos % (Auto) 0.1 % Baso % (Auto) 0.3 % Neut # (Auto) 3.99 (1.4-6.5) K/uL Lymph # (Auto) 2.47 (1.2-3.4) K/uL Irion # (Auto) 1.14 H (0.11-0.59) K/uL Eos # (Auto) 0.01 (0-0.5) K/uL Baso # (Auto) 0.02 (0-0.2) K/uL Immature Gran # (Auto) 0.01 (0.00-0.02) K/uL PT 11.4 (9.0-12.0) Seconds INR 1.1 (0.9-1.1) APTT 33.0 H (21.0-31.0) Seconds PTT Ratio 1.3 Sodium 132 L (136-145) mmol/L Potassium 3.8 (3.5-5.1) mmol/L Chloride 99 (98-107) mmol/L Carbon Dioxide 28 (21-32) mmol/L Anion Gap 5.0 (3-11) BUN 18 (7-18) mg/dl Creatinine 1.84 H (0.6-1.4) mg/dl Est Cr Clr Drug Dosing Not Reportable Est GFR ( Amer) 43.9 Est GFR (Non-Af Amer) 37.9 BUN/Creatinine Ratio 9.9 L (10-20) Glucose 91 (70-99) mg/dl Lactate (0.4-2.0) mmol/L Calcium 8.9 (8.5-10.1) mg/dl Magnesium 2.0 (1.8-2.4) mg/dl Total Bilirubin 1.1 H (0.2-1) mg/dl AST 23 (15-37) U/L ALT 28 (12-78) U/L Alkaline Phosphatase 54 (45-117) U/L Total Protein 7.4 (6.4-8.2) gm/dl Albumin 3.8 (3.4-5.0) gm/dl Globulin 3.6 (2.5-4.0) gm/dl Albumin/Globulin Ratio 1.1 (0.9-2) Procalcitonin (0-0.5) ng/ml Random Cortisol mcg/dl COVID-19 Eval Order SARS-CoV-2 (PCR) (Negative) Influenza Type A (PCR) (Neg) Influenza Type B (PCR) (Neg) RSV (RT-PCR) (Neg) 10/02/20 10/02/20 10/02/20 Range/Units 21:31 21:31 21:31 WBC (4.8-10.8) K/uL RBC (4.7-6.1) M/uL Hgb (14.0-18.0) g/dL Hct (42-52) % MCV (80-100) fL MCH (25-34) pg MCHC (32-36) g/dL RDW Std Deviation (36.4-46.3) fL RDW Coeff of Joshua (11.5-14.5) % Plt Count (130-400) K/uL MPV (7.4-10.4) fL Immature Gran % (Auto) % Neut % (Auto) % Lymph % (Auto) % Irion % (Auto) % Eos % (Auto) % Baso % (Auto) % Neut # (Auto) (1.4-6.5) K/uL Lymph # (Auto) (1.2-3.4) K/uL Irion # (Auto) (0.11-0.59) K/uL Eos # (Auto) (0-0.5) K/uL Baso # (Auto) (0-0.2) K/uL Immature Gran # (Auto) (0.00-0.02) K/uL PT (9.0-12.0) Seconds INR (0.9-1.1) APTT (21.0-31.0) Seconds PTT Ratio Sodium (136-145) mmol/L Potassium (3.5-5.1) mmol/L Chloride (98-107) mmol/L Carbon Dioxide (21-32) mmol/L Anion Gap (3-11) BUN (7-18) mg/dl Creatinine (0.6-1.4) mg/dl Est Cr Clr Drug Dosing Est GFR ( Amer) Est GFR (Non-Af Amer) BUN/Creatinine Ratio (10-20) Glucose (70-99) mg/dl Lactate 1.5 (0.4-2.0) mmol/L Calcium (8.5-10.1) mg/dl Magnesium (1.8-2.4) mg/dl Total Bilirubin (0.2-1) mg/dl AST (15-37) U/L ALT (12-78) U/L Alkaline Phosphatase (45-117) U/L Total Protein (6.4-8.2) gm/dl Albumin (3.4-5.0) gm/dl Globulin (2.5-4.0) gm/dl Albumin/Globulin Ratio (0.9-2) Procalcitonin 0.20 (0-0.5) ng/ml Random Cortisol 1.33 mcg/dl COVID-19 Eval Order SARS-CoV-2 (PCR) (Negative) Influenza Type A (PCR) (Neg) Influenza Type B (PCR) (Neg) RSV (RT-PCR) (Neg) 10/02/20 10/02/20 Range/Units Unknown Unknown WBC (4.8-10.8) K/uL RBC (4.7-6.1) M/uL Hgb (14.0-18.0) g/dL Hct (42-52) % MCV (80-100) fL MCH (25-34) pg MCHC (32-36) g/dL RDW Std Deviation (36.4-46.3) fL RDW Coeff of Joshua (11.5-14.5) % Plt Count (130-400) K/uL MPV (7.4-10.4) fL Immature Gran % (Auto) % Neut % (Auto) % Lymph % (Auto) % Irion % (Auto) % Eos % (Auto) % Baso % (Auto) % Neut # (Auto) (1.4-6.5) K/uL Lymph # (Auto) (1.2-3.4) K/uL Irion # (Auto) (0.11-0.59) K/uL Eos # (Auto) (0-0.5) K/uL Baso # (Auto) (0-0.2) K/uL Immature Gran # (Auto) (0.00-0.02) K/uL PT (9.0-12.0) Seconds INR (0.9-1.1) APTT (21.0-31.0) Seconds PTT Ratio Sodium (136-145) mmol/L Potassium (3.5-5.1) mmol/L Chloride (98-107) mmol/L Carbon Dioxide (21-32) mmol/L Anion Gap (3-11) BUN (7-18) mg/dl Creatinine (0.6-1.4) mg/dl Est Cr Clr Drug Dosing Est GFR ( Amer) Est GFR (Non-Af Amer) BUN/Creatinine Ratio (10-20) Glucose (70-99) mg/dl Lactate (0.4-2.0) mmol/L Calcium (8.5-10.1) mg/dl Magnesium (1.8-2.4) mg/dl Total Bilirubin (0.2-1) mg/dl AST (15-37) U/L ALT (12-78) U/L Alkaline Phosphatase (45-117) U/L Total Protein (6.4-8.2) gm/dl Albumin (3.4-5.0) gm/dl Globulin (2.5-4.0) gm/dl Albumin/Globulin Ratio (0.9-2) Procalcitonin (0-0.5) ng/ml Random Cortisol mcg/dl COVID-19 Eval Order CovFluRsv at [facility] SARS-CoV-2 (PCR) NEGATIVE (Negative) Influenza Type A (PCR) Negative (Neg) Influenza Type B (PCR) Negative (Neg) RSV (RT-PCR) Negative (Neg) Administered Medications Discontinued Medications Diphenhydramine HCl (Diphenhydramine 50 Mg/Ml Vial) 25 mg IV NOW STA Stop: 10/02/20 21:13 Last Admin: 10/02/20 22:06 Dose: 25 mg Documented by: [id number] Droperidol (Droperidol 5 Mg/2 Ml Vial) 0.625 mg IV ONE STA Stop: 10/02/20 21:13 Last Admin: 10/02/20 22:06 Dose: 0.625 mg Documented by: [id number] Acetaminophen (Ofirmev) 1,000 mg in 100 mls @ 400 mls/hr IV NOW STA Stop: 10/02/20 21:23 Last Infusion: 10/02/20 23:10 Dose: 0 mls/hr Documented by: [id number] Admin: 10/02/20 22:07 Dose: 400 mls/hr Documented by: [id number] Magnesium Sulfate/Dextrose (Magnesium Sulfate / D5w) 1 gm in 100 mls @ 100 mls/hr IV NOW STA Stop: 10/02/20 22:11 Last Infusion: 10/02/20 23:37 Dose: 0 mls/hr Documented by: [id number] Admin: 10/02/20 22:07 Dose: 100 mls/hr Documented by: [id number] Sodium Chloride (Nss 1000ml) 1,000 mls @ 999 mls/hr IV .Q1H1M ONE Stop: 10/02/20 22:12 Last Infusion: 10/02/20 23:37 Dose: 0 mls/hr Documented by: [id number] Admin: 10/02/20 22:07 Dose: 999 mls/hr Documented by: [id number] Sodium Chloride (Nss 1000ml) 500 mls @ 999 mls/hr IV .Q31M ONE Stop: 10/02/20 22:39 Last Infusion: 10/03/20 00:40 Dose: 0 mls/hr Documented by: [id number] Admin: 10/02/20 23:24 Dose: 999 mls/hr Documented by: [id number] Ketorolac Tromethamine (Ketorolac 30 Mg/Ml Vial) 30 mg IV NOW ONE Stop: 10/02/20 22:43 Last Admin: 10/02/20 23:24 Dose: 30 mg Documented by: [id number] Methylprednisolone (Methylprednisolone 125 Mg/2 Ml Vial) 125 mg IV NOW STA Stop: 10/02/20 22:43 Last Admin: 10/02/20 23:23 Dose: 125 mg Documented by: [id number] Discharge Plan Visit Data Chief Complaint: Fever Stated Complaint: WEAKNESS, TIRED, FEVER, ED Provider: Jose A Haile Discharge Problem: Fever, Adrenal insufficiency Forms Stand Alone Forms: [facility] Prescriptions Prescriptions: No Action hydrocortisone 20 mg tablet 20 mg PO QAM Qty: 90 RF: 3 levothyroxine 100 mcg tablet 100 mcg PO QAM Qty: 90 RF: 3 hydrocodone-homatropine 5-1.5 mg/5 mL syrup 5 ml PO HS PRN (Reason: Cough) Qty: 450 RF: 0 testosterone 20.25 mg/1.25 gram (1.62 %) gel in metered-dose pump 4 pump TOP DAILY Qty: 150 RF: 5 potassium chloride 20 mEq tablet extended release 20 meq PO DAILY Qty: 90 RF: 3 calcium carbonate [Tums] 200 mg calcium (500 mg) tablet,chewable 200 mg PO DAILY PRN (Reason: Gi Upset) RF: 0 hydrocortisone 10 mg tablet See Patient Comments mg PO QPM Qty: 90 RF: 3 losartan 25 mg tablet 25 mg PO QAM RF: 0 Referrals Referrals: Irwin Martell III, MD [Primary Care Provider] - Rogelio Juarez MD [Physician] - Discharge Problem: Fever Qualifiers: Fever type: unspecified Qualified Code(s): R50.9 - Fever, unspecified
[2020-10-02 23:01] LABS: Influenza A virus by PCR Negative (Neg); Influenza B virus by PCR Negative (Neg); RSV by PCR Negative (Neg); SARS CoV2 RNA(COVID-19) InHosp NEGATIVE (Negative)
--- NOTE | 2020-10-03 02:47 | History & Physical Report ---
Date of Service October 03, 2020 Assessment & Plan (1) Panhypopituitarism: Panhypopituitarism/adrenal insufficiency- Patient likely unable to tolerate the stress physiologic response to the COVID- 19 vaccine. He did receive Solu-Medrol 100 mg IV from the ED. Continue hydrocortisone 20 mg every morning and 10 mg q. afternoon. Hydrocortisone 100 mg IV every 8 hours x3 doses Continue testosterone transdermal gel pump as per outpatient Present on Admission?: Yes (2) Adrenal insufficiency: See above Present on Admission?: Yes (3) Acute kidney injury: Creatinine 1.84 upon admission, with baseline 1.12. Placed on NSS at 125 mils per hour. Repeat laboratories in a.m. Hold lisinopril and potassium chloride CK has been added to ED labs to assess for possible rhabdo Present on Admission?: Yes (4) HTN (hypertension), benign: Hold losartan, potassium chloride Present on Admission?: Yes (5) Hypothyroidism: Continue levothyroxine 100 mcg daily Present on Admission?: Yes (6) Abnormal EKG: EKG with mild lateral ST-T changes. Initial troponin negative. Admit to monitored bed for serial troponins and monitor for arrhythmia. Present on Admission?: Yes History of Present Illness Chief Complaint: The patient presents to the emergency department with complaint of generalized malaise, including fatigue, aches and pains all over his body after receiving the first Pfizer vaccine for COVID-19 yesterday Primary Care Provider: Irwin Martell MD The patient is a 65-year-old male with a past medical history including hypothyroidism, hyponatremia, obesity, hypertension, panhypopituitarism, and adrenal insufficiency. He presents as noted above. In the emergency department he was given Solu-Medrol 125 mg IV, Toradol 30 mg IV, NSS 1500 mL, Benadryl 25 mg IV, droperidol 0.625 mg IV and magnesium sulfate 1 g IV. Allergies Allergy/AdvReac Type Severity Reaction Status Date / Time cigarette smoke Allergy Unknown Respiratory Verified 02/25/20 11:24 symptoms Rabbit Allergy Unknown Hard time Verified 02/25/20 11:24 breathing, clogs head Home Medications Medication Instructions Recorded Confirmed Type calcium carbonate 200 mg calcium 200 mg PO DAILY PRN tab 02/09/19 02/25/20 History (500 mg) chewable tablet hydrocortisone 20 mg tablet 20 mg PO QAM #90 tab 07/31/19 02/25/20 Rx losartan 25 mg PO QAM 01/05/20 02/25/20 History levothyroxine 100 mcg tablet 100 mcg PO QAM #90 tab 02/15/20 02/25/20 Rx hydrocodone-homatropine 5 mg-1.5 5 ml PO HS PRN #450 ml 02/25/20 Rx mg/5 mL oral syrup hydrocortisone 10 mg tablet See Rx Instructions PO QPM #90 tab 02/25/20 02/25/20 Rx testosterone 20.25 mg/1.25 gram 4 pump TOP DAILY #150 gm 06/02/20 Rx (1.62 %) transdermal gel pump potassium chloride 20 mEq 20 meq PO DAILY #90 tab 07/09/20 Rx tablet,extended release Past Med/Surg History Medical History (Updated 10/03/20 @ 05:56 by Thiago Ashby MD) Adrenal insufficiency CKD (chronic kidney disease) stage 3, GFR 30-59 ml/min HTN (hypertension), benign Obesity (BMI 30-39.9) Panhypopituitarism Vasovagal episode Surgical History History of surgical removal of pituitary gland Family History Father Heart disease Mother No problems noted. Denies family history of Ovarian cancer Prostate cancer Myocardial infarction Breast cancer Colorectal cancer Social History Smoking Status: Never smoker Second Hand Exposure: No; Do You Dip or Chew Tobacco: No; Hx Alcohol Use: No Hx Substance Use: No Preferred Language: Korean Communication Ability: Effective Visual Impairment: Limited Hearing Ability: Normal Platform Software Engineer Required: No Beliefs That Will Affect Care: None marital status: Current Living Situation: Spouse current occupational status: employed current occupation: Self-employed, sells things on [employer] Other Information That Helps Us Care for You: No Feels Safe at Home: Yes Safety Concerns: Feels Safe At This Time Childhood Exposure to Second-Hand Smoke: Yes (father quit after he realized of allergy) caffeine: Yes during the past year weight has: remained stable Dental Care, Regularly: Yes Physical Activity Frequency: 5-6 Times per Week Seatbelt Use: always Sunscreen Use: No Assistive Devices: Glasses Review of Systems Review of Systems: The patient denies chest pain, palpitations, shortness of breath, dyspnea on exertion, cough, lower extremity swelling, sore throat, fevers, chills, sweats, nausea, vomiting, diarrhea , constipation, abdominal pain, pelvic pain, blood in urine or stool, dysuria, urinary frequency or urgency, lightheadedness, dizziness, headache, memory loss, loss of consciousness, rash, abnormal bruising or bleeding, imbalance, focal or generalized weakness, numbness or tingling in arms or legs, or night sweats. The review of systems is otherwise negative other than for that already noted above, and at least 10 systems have been reviewed. Physical Exam Physical Exam: The patient is awake, alert and oriented 3, well developed and well nourished, normocephalic and atraumatic, lying in bed and in no acute distress. HEENT--PERRL, EOMI, mucous membranes and oropharynx dry. Neck--supple. No JVD. No bruits. Thyroid normal, trachea midline, no adenopathy. Heart--normal S1 and S2. No murmurs, rubs or gallops. Lungs--clear bilaterally, no respiratory distress, no accessory muscle use. Abdomen--normal bowel sounds and soft. Nontender. Nondistended, no hernias or masses, no organomegaly. Extremities--no cyanosis or clubbing. No edema. Dermatologic--normal skin turgor, normal color, no abnormal lymph nodes, no rash. Neurologic--cranial nerves II through XII grossly intact. Rheumatologic--normal range of motion. Psychiatric--normal affect. Results & Data Results & Data ([facility]) Vital Signs (Past 12 Hours) Vital Signs Temp Pulse Resp BP Pulse Ox 10/03/20 02:15 72 20 102/58 L 94 10/03/20 02:01 78 21 81 L 10/03/20 02:00 72 16 104/55 L 95 10/03/20 01:45 78 19 111/58 L 95 10/03/20 01:30 79 14 114/63 91 10/03/20 01:15 91 H 21 98/85 L 96 10/03/20 01:01 84 24 92 10/03/20 01:00 84 24 106/57 L 92 10/03/20 00:45 85 19 120/60 91 10/03/20 00:30 85 19 108/58 L 91 10/03/20 00:00 87 17 111/53 L 90 10/02/20 23:45 89 15 107/57 L 91 10/02/20 23:30 85 24 109/58 L 90 10/02/20 23:28 99.5 F 10/02/20 23:15 95 H 19 118/72 94 10/02/20 23:00 89 24 105/58 L 96 10/02/20 22:45 89 22 107/59 L 96 10/02/20 22:30 82 24 112/52 L 96 10/02/20 22:15 83 22 115/56 L 100 10/02/20 22:00 81 24 116/48 L 98 10/02/20 21:00 90 22 136/82 92 10/02/20 20:55 103.2 F H 101 H 25 H 149/88 H 95 Laboratory Results Laboratory Results WBC 7.64 K/uL (4.8-10.8) 10/02/20 21:31 RBC 5.03 M/uL (4.7-6.1) 10/02/20 21:31 Hgb 15.2 g/dL (14.0-18.0) 10/02/20 21:31 Hct 43.2 % (42-52) 10/02/20 21:31 MCV 85.9 fL (80-100) 10/02/20 21: MCH 30.2 pg (25-34) 10/02/20 21: MCHC 35.2 g/dL (32-36) 10/02/20 21:31 RDW Std Deviation 42.0 fL (36.4-46.3) 10/02/20 21:31 RDW Coeff of Joshua 13.4 % (11.5-14.5) 10/02/20 21: Plt Count 119 K/uL (130-400) L 10/02/20 21:31 MPV 9.4 fL (7.4-10.4) 10/02/20 21:31 Immature Gran % (Auto) 0.1 % 10/02/20 21: Neut % (Auto) 52.3 % 10/02/20 21:31 Lymph % (Auto) 32.3 % 10/02/20 21:31 [place] % (Auto) 14.9 % 10/02/20 21: Eos % (Auto) 0.1 % 10/02/20 21: Baso % (Auto) 0.3 % 10/02/20 21:31 Neut # (Auto) 3.99 K/uL (1.4-6.5) 10/02/20 21: Lymph # (Auto) 2.47 K/uL (1.2-3.4) 10/02/20 21: [place] # (Auto) 1.14 K/uL (0.11-0.59) H 10/02/20 21: Eos # (Auto) 0.01 K/uL (0-0.5) 10/02/20 21: Baso # (Auto) 0.02 K/uL (0-0.2) 10/02/20 21: Immature Gran # (Auto) 0.01 K/uL (0.00-0.02) 10/02/20 21: PT 11.4 Seconds (9.0-12.0) 10/02/20 21: INR 1.1 (0.9-1.1) 10/02/20 21: APTT 33.0 Seconds (21.0-31.0) H 10/02/20 21: PTT Ratio 1.3 10/02/20 21: Sodium 132 mmol/L (136-145) L 10/02/20: Potassium 3.8 mmol/L (3.5-5.1) 10/02/20: Chloride 99 mmol/L (98-107) 10/02/20 21: Carbon Dioxide 28 mmol/L (21-32) 10/02/20 21: Anion Gap 5.0 (3-11) 10/02/20 21: BUN 18 mg/dl (7-18) 10/02/20 21: Creatinine 1.84 mg/dl (0.6-1.4) H 10/02/20 21:31 Est Cr Clr Drug Dosing Not Reportable 10/02/20 21: Est GFR ( Amer) 43.9 10/02/20 21: Est GFR (Non-Af Amer) 37.9 10/02/20 21:31 BUN/Creatinine Ratio 9.9 (10-20) L 10/02/20 21:31 Glucose 91 mg/dl (70-99) 10/02/20 21:31 Lactate 1.5 mmol/L (0.4-2.0) 10/02/20 21:31 Calcium 8.9 mg/dl (8.5-10.1) 10/02/20 21: Magnesium 2.0 mg/dl (1.8-2.4) 10/02/20 21:31 Total Bilirubin 1.1 mg/dl (0.2-1) H 10/02/20 21:31 AST 23 U/L (15-37) 10/02/20 21:31 ALT 28 U/L (12-78) 10/02/20 21:31 Alkaline Phosphatase 54 U/L (45-117) 10/02/20 21:31 Total Protein 7.4 gm/dl (6.4-8.2) 10/02/20 21:31 Albumin 3.8 gm/dl (3.4-5.0) 10/02/20 21:31 Globulin 3.6 gm/dl (2.5-4.0) 10/02/20 21:31 Albumin/Globulin Ratio 1.1 (0.9-2) 10/02/20 21:31 Procalcitonin 0.20 ng/ml (0-0.5) 10/02/20 21:31 Random Cortisol 1.33 mcg/dl 10/02/20 21:31 COVID-19 Eval Order CovFluRsv at [facility] 10/02/20 Unknown SARS-CoV-2 (PCR) NEGATIVE (Negative) 10/02/20 Unknown Influenza Type A (PCR) Negative (Neg) 10/02/20 Unknown Influenza Type B (PCR) Negative (Neg) 10/02/20 Unknown RSV (RT-PCR) Negative (Neg) 10/02/20 Unknown Code Status & VTE Plan Code Status Full code VTE Prophylaxis Plan VTE Prophylaxis will be ordered: Yes PG Care Time/CCT Total # of Minutes Spent Total Time Spent with Patient: Total time spent is greater than 50% in coordination of care (as documented) at patient's floor/unit and/or counseling patient: Coding Level of Care Code 53471 OBS Care - Level 3 Diagnoses Panhypopituitarism E23.0 Adrenal insufficiency E27.40 Acute kidney injury N17.9 HTN (hypertension), benign I10 Hypothyroidism E03.9 Abnormal EKG R94.31
[2020-10-03] MEDS ORDERED: ACETAMINOPHEN 325 MG TAB PO PRN (04:13)
[2020-10-03] MEDS ORDERED: ONDANSETRON INJ 2 MG/ML 2 ML VIAL IV PRN (04:13)
[2020-10-03] MEDS ORDERED: HYDROCORTISONE SOD SUCCINATE 100 MG/2 ML VIAL IV SCH (04:13)
[2020-10-03] MEDS: SODIUM CHLORIDE 0.9% 1000ML 1,000 ML IV SCH ×4 (04:31→23:06)
[2020-10-03] MEDS: HYDROCORTISONE SOD 100 MG in SYRINGE 0 ML IV SCH ×2 (06:05→12:58)
[2020-10-03] MEDS: LEVOTHYROXINE SODIUM 100 MCG TABLET PO SCH (06:05)
[2020-10-03 06:23] LABS: Appearance Urine Cloudy (Clear); Bacteria Urine Automated Negative (Negative); Bilirubin Urine Negative (Negative); Blood Urine Trace (Negative); Cast Urine Automated 0 /lpf (0-5); Color Urine Yellow; Epithelial Cell Urine Auto 0-5 /lpf (0-5); Glucose Urine UA Negative (Negative); Ketones Urine Negative (Negative); Leukocyte Esterase Urine Negative (Negative); Nitrite Urine Negative (Negative); Protein Urine Negative (Negative); RBC Urine Automated 0-4 /hpf (0-4); Specific Gravity Urine 1.011 (1.000-1.030); Urobilinogen Urine Negative (Negative); WBC Urine Automated 0 /hpf (0-5); pH Urine 5.5 (4.5-7.5)
--- NOTE | 2020-10-03 07:18 | XRay Report ---
XR chest 1V portable CLINICAL HISTORY: SEPSIS COMPARISON STUDY: Chest radiograph and chest CT January 05, 2020. FINDINGS: Lung volumes are at the lower limits of normal. There is mild cardiomegaly. No pneumothorax or pleural effusion is noted. There is no lobar consolidation. Right infrahilar opacity is noted. Ap parent left basilar opacity is likely artifactual. IMPRESSION: No definite acute findings. Right infrahilar opacity which likely reflects pulmonary vess els or atelectasis. ACT 112: Negative or not required by law. Electronically signed by: Lance Waters M.D. 10/03/2020 7:16 AM
[2020-10-03] MEDS: TESTOSTERONE~ORDER AWAITING ACTION SCH ×3 (09:17→23:36)
[2020-10-03] MEDS: ENOXAPARIN INJ 30 MG/0.3 ML SYR SQ SCH (09:19)
[2020-10-03] MEDS: HYDROCORTISONE 10 MG TAB PO SCH (09:20)
--- NOTE | 2020-10-03 13:00 | Electrocardiogram Report ---
Test Reason : Blood Pressure : / mmHG Vent. Rate : 097 BPM Atrial Rate : 097 BPM P-R Int : 178 ms QRS Dur : 100 ms QT Int : 350 ms P-R-T Axes : 062 013 059 degrees QTc Int : 444 ms Normal sinus rhythm Nonspecific ST and T wave abnormality Abnormal ECG When compared with ECG of 27-FEB-2015 06:25, T wave inversion no longer evident in Lateral leads Confirmed by Mickey Salazar ([id number]) on 10/03/2020 1:00:07 PM Referred By: REFERRED SELF Confirmed By:Mickey Salazar
[2020-10-03] MEDS ORDERED: HYDROCORTISONE 10 MG TAB PO SCH (21:00)
[2020-10-04] MEDS: SODIUM CHLORIDE 0.9% 1000ML 1,000 ML IV SCH (05:49)
[2020-10-04] MEDS: LEVOTHYROXINE SODIUM 100 MCG TABLET PO SCH (05:50)
[2020-10-04 06:29] LABS: Basophils # (auto) 0.01 K/uL (0-0.2); Basophils % (auto) 0.1 %; Hematocrit (blood only) 36.6 % (42-52); Immature Granulocytes # (auto) 0.04 K/uL (0.00-0.02); Immature Granulocytes % (auto) 0.2 %; Lymphocytes # (auto) 1.45 K/uL (1.2-3.4); Lymphocytes % (auto) 8.8 %; Mean Corpuscular Hemoglobin 30.2 pg (25-34); Mean Corpuscular Hgb Conc 35.5 g/dL (32-36); Mean Corpuscular Volume 85.1 fL (80-100); Mean Platelet Volume 9.7 fL (7.4-10.4); Monocytes % (auto) 9.1 %; Neutrophils # (auto) 13.52 K/uL (1.4-6.5); Neutrophils % (auto) 81.8 %; Platelet Count 134 K/uL (130-400); RDW Coefficient of Variation 13.8 % (11.5-14.5); RDW Standard Deviation 42.6 fL (36.4-46.3); White Blood Count 16.52 K/uL (4.8-10.8)
[2020-10-04 06:52] LABS: Albumin Level 3.4 gm/dl (3.4-5.0); BUN Creatinine Ratio 18.3 (10-20); Bilirubin,Total 0.5 mg/dl (0.2-1); Calcium 7.9 mg/dl (8.5-10.1); Creatinine Clr Calc Pharmacy 83.4 ml/min; Est GFR (African American) 75.1; Est GFR (Non-African American) 64.8; Globulin 3.4 gm/dl (2.5-4.0); Potassium 3.7 mmol/L (3.5-5.1); Total Protein 6.8 gm/dl (6.4-8.2)
[2020-10-04] MEDS: TESTOSTERONE~ORDER AWAITING ACTION SCH (07:01)
[2020-10-04] MEDS: ENOXAPARIN INJ 30 MG/0.3 ML SYR SQ SCH (07:44)
[2020-10-04] MEDS: HYDROCORTISONE 10 MG TAB PO SCH (07:45)
--- NOTE | 2020-10-09 09:25 | Discharge Summary ---
Date of Service October 04, 2020 Admission HPI Per Admitting Provider The patient is a 65-year-old male with a past medical history including hypothyroidism, hyponatremia, obesity, hypertension, panhypopituitarism, and adrenal insufficiency. He presents as noted above. In the emergency department he was given Solu-Medrol 125 mg IV, Toradol 30 mg IV, NSS 1500 mL, Benadryl 25 mg IV, droperidol 0.625 mg IV and magnesium sulfate 1 g IV. Principal Diagnosis Panhypopituitarism Discharge Exam The patient is awake, alert and oriented 3, well developed and well nourished, normocephalic and atraumatic, lying in bed and in no acute distress. HEENT--PERRL, EOMI, mucous membranes and oropharynx dry. Neck--supple. No JVD. No bruits. Thyroid normal, trachea midline, no adenopathy. Heart--normal S1 and S2. No murmurs, rubs or gallops. Lungs--clear bilaterally, no respiratory distress, no accessory muscle use. Abdomen--normal bowel sounds and soft. Nontender. Nondistended, no hernias or ma sses, no organomegaly. Extremities--no cyanosis or clubbing. No edema. Dermatologic--normal skin turgor, normal color, no abnormal lymph nodes, no rash. Neurologic--cranial nerves II through XII grossly intact. Rheumatologic--normal range of motion. Psychiatric--normal affect. Discharge Data Allergies Allergy/AdvReac Type Severity Reaction Status Date / Time cigarette smoke Allergy Unknown Respiratory Verified 02/25/20 11:24 symptoms Rabbit Allergy Unknown Hard time Verified 02/25/20 11:24 breathing, clogs head Consultations 10/03/20 00:59 ED Decision to Admit Stat Hospital Course (1) Panhypopituitarism: Panhypopituitarism/adrenal insufficiency- Patient likely unable to tolerate the stress physiologic response to the COVID- 19 vaccine. He did receive Solu-Medrol 100 mg IV from the ED. Continue hydrocortisone 20 mg every morning and 10 mg q. afternoon. Hydrocortisone 100 mg IV every 8 hours x2 doses. Third dose was held. Maintained a strong blood pressure overnight. patient continue to feel well on day of discharge. Will recommend he continues double dosing his steroids as an outpatient. Continue testosterone transdermal gel pump as per outpatient (2) Adrenal insufficiency: See above (3) Acute kidney injury: Creatinine 1.84 upon admission, with baseline 1.12. Placed on NSS at 125 mils per hour. Repeat laboratories in a.m. Hold lisinopril and potassium chloride CK has been added to ED labs to assess for possible rhabdo: mildly elevated at 371 (4) HTN (hypertension), benign: Hold losartan, potassium chloride (5) Hypothyroidism: Continue levothyroxine 100 mcg daily (6) Abnormal EKG: EKG with mild lateral ST-T changes. Initial troponin negative. Admit to monitored bed for serial troponins and monitor for arrhythmia. Total Time Total Time Spent Total Time Spent (In Minutes): 32 Total Time Includes: Examination of the Patient, Discharge Planning and Medication Reconciliation Discharge Plan Discharge Items Patient Disposition: Home - Self-Care Reason For Visit: ADRENAL INSUFFICIENCY, COVID VACCINE REACTION Discharge Diagnosis: Adrenal insufficiency Activity: Resume your previous activity Non-emergency contact: Primary Care Provider Call non-emergency contact if: you have any medication questions Follow-up/Referrals: Irwin Martell III, MD [Primary Care Provider] - Diet: Heart Healthy Addtl Attending Provider Instructions: You have been hospitalized for an acute medical problem. During your stay at [facility], we have made an effort to correct the problem that brought you to the hospital while keeping you as comfortable as possible. Medic ations were used to bring your condition under control and your discharge instructions will include directions for any medications you should take after leaving the hospital. Please make sure you see your Primary Care Provider as part of your follow up plan. Will recommend to double your hydrocortisone for 5 days. Pending Studies at Discharge: No Stand-Alone Forms: My [facility] GREE, Smoking Cessation Medications and DC Order Prescriptions: Continued hydrocortisone 20 mg tablet 20 mg PO QAM Qty: 90 RF: 3 levothyroxine 100 mcg tablet 100 mcg PO QAM Qty: 90 RF: 3 hydrocodone-homatropine 5-1.5 mg/5 mL syrup 5 ml PO HS PRN (Reason: Cough) Qty: 450 RF: 0 testosterone 20.25 mg/1.25 gram (1.62 %) gel in metered-dose pump 4 pump TOP DAILY Qty: 150 RF: 5 potassium chloride 20 mEq tablet extended release 20 meq PO DAILY Qty: 90 RF: 3 calcium carbonate [Tums] 200 mg calcium (500 mg) tablet,chewable 200 mg PO DAILY PRN (Reason: Gi Upset) RF: 0 hydrocortisone 10 mg tablet See Patient Comments mg PO QPM Qty: 90 RF: 3 losartan 25 mg tablet 25 mg PO QAM RF: 0 Discharge Orders: Discharge Order (Routine); Ordered 10/04/20 Ordered By: Vic Mccray Admission Data Admit Date/Time: 10/03/20 02:46 Attending Provider: Vic Mccray Admit Provider: Thiago Ashby Primary Care Provider: Irwin Martell III Other Interventions: Discharge Summary Assessment (RN) Last Done: 10/04/20 08:35 Coding Level of Care Code D/C Day Management >30 mins Diagnoses Panhypopituitarism E23.0 Adrenal insufficiency E27.40 Acute kidney injury N17.9 HTN (hypertension), benign I10 Hypothyroidism E03.9 Abnormal EKG R94.31
== END 2020-10-04 09:23 | disposition home or self-care (01) ==
LOC: ED 20:42 → 2N 20:42 → SUATTDRO 10-03 02:46 → 2N 10-03 03:15